=== PATIENT | female | born 1935 | race Caucasian/White ===

== ENCOUNTER 2017-08-20 14:11 | Inpatient (IN) | payer MEDICARE ==
[~2017-08-20] VITALS: Ht 147.3 cm; Wt 60.9 kg
[~2017-08-20 14:11] MED LIST: ALLOPURINOL100 MG PO; ASPIRIN325 MG PO; ASPIRIN81 M1 PO; ASPIRIN81 MG PO; BENTYL10 MG PO; BUTALB-ACETAMI1 EACH PO; CLONIDINE HCL0.1 MG PO; CLONIDINE HCL0.2 MG PO; DULERA 100 MCG/13 GM INH; FUROSEMIDE40 MG PO; HYDROCODON-ACE1 EAC9 PO; ISOSORBIDE MONO30 MG PO; KLOR-CON M2020 MEQ PO; KLOR-CON20 MEQ PO; LEVOTHYROXINE88 MCG PO; LEXAPRO10 MG PO; LORAZEPAM0.5 MG PO; LOSARTAN POTASS25 MG PO; MIRAPEX0.25 MG PO; NORCO 10-325 T1 EACH PO; OXYBUTYNIN CHLOR5 MG PO; PANTOPRAZOLE SO20 MG PO; PANTOPRAZOLE SO40 MG PO; PRAVASTATIN SOD40 MG PO; PREDNISONE5 MG PO; SUCRALFATE1 GM PO; TOPROL XL50 MG PO; TRAZODONE HCL50 MG PO; VITAMIN D31000 UNI1 PO; Z LEVOTHROID PO; Z.0.ALLOPURINOL100 M PO; Z.0.BENAZEPRIL HCL20; Z.0.CATAPRES0.2 MG PO; Z.0.GLYBURIDE MICRON; Z.0.ISOSORBIDE DINI3 PO; Z.0.LASIX40 MG PO; Z.0.LASIX80 MG; Z.0.OMEPRAZOLE40 MG; Z.0.OXYBUTYNIN CHLOR PO; Z.0.PREDNISONE5 MG PO; Z.0.TOPROL XL100 MG PO; [UNRECOGNIZED DRUG - CODE] TP; [UNRECOGNIZED DRUG - OTHER] PO
--- NOTE | 2017-08-20 16:52 | Diagnostic Imaging Report ---
PROCEDURE: A single AP view of the chest performed at 1630 hrs. COMPARISON: Chest x-ray 07/15/17 INDICATIONS: SEPSIS, AMS FINDINGS: Lines/tubes: None. Heart and mediastinum: Stable cardiomegaly. Aorta is ectatic with atherosclerotic calcifications. Lungs: The lungs are well inflated and clear. There is no evidence of mass or infiltrate. Pulmonary vascular markings are normal. Pleura: There is no pleural effusion or pneumothorax. Bones: No focal osseous lesions. IMPRESSION: Stable cardiomegaly. No vascular congestion. No acute pulmonary process. Dictated by: Dannielle Scott M.D. on 08/20/2017 at 17:00 Electronically approved by: Dannielle Scott M.D. on 08/20/2017 at 17:00
[2017-08-20 17:23] LABS: BASOPHILS # (AUTO) 0.1 (0.0-0.1); BASOPHILS % 0.5 % (0.0-1.0); EOSINOPHILS # (AUTO) 0.1 (0.0-0.4); EOSINOPHILS % 0.9 % (0.0-6.0); HEMATOCRIT 31.7 % (34.2-44.1); HEMOGLOBIN 10.3 g/dL (12.0-16.0); LYMPHOCYTES # (AUTO) 2.1 (1.0-3.2); LYMPHOCYTES % 18.9 % (18.0-39.1); MEAN CORPUSCULAR HEMOGLOBIN 29.2 pg (28-32); MEAN CORPUSCULAR HGB CONC 32.5 g/dL (31-35); MEAN CORPUSCULAR VOLUME 89.8 fL (81-99); MONOCYTES # (AUTO) 0.5 (0.2-0.8); NEUTROPHILS # (AUTO) 7.9 (2.1-6.9); NEUTROPHILS % 72.9 % (38.7-80.0); PLATELET COUNT 247 x10e3/uL (140-360); RED BLOOD COUNT 3.53 x10e6/uL (3.6-5.1); RED CELL DISTRIBUTION WIDTH 18.5 % (11.7-14.4)
--- NOTE | 2017-08-20 17:33 | Diagnostic Imaging Report ---
EXAMINATION: Head CT HISTORY: Headache. COMPARISON: None. TECHNIQUE: Multidetector axial images were obtained without contrast from the foramen magnum to the vertex . The images were reconstructed using brain and bone algorithms. Thin section brain images were reformatted into coronal and sagittal planes. Image quality: Motion/streaking artifact limits the evaluation of the skull base and posterior cranial fossa. FINDINGS: Parenchyma: 1. Moderate confluent white matter hypodensities consistent with chronic microvascular ischemic changes. 2. No mass or hemorrhage. No CT evidence of acute territorial vascular insult. Extra-axial spaces:No abnormal density. No extra-axial fluid collections Brain volume: Normal for age. Ventricles: No hydrocephalus or displacement. Arteries: No density suggestive of thrombus. Dural sinuses: No abnormal density. Extra-axial spaces: No abnormal density. Foramen magnum: No mass, Chiari malformation, or basilar invagination. Sella: No obvious mass. Paranasal/mastoid sinuses: Mild mucosal inflammatory changes in the left maxillary sinus. Skull/Scalp: No lytic or blastic lesions. No fractures. IMPRESSION: No acute intracranial abnormalities. Moderate chronic microvascular changes. Signed by: Dr. Dulce Fuentes M.D. on 08/20/2017 5:29 PM
[2017-08-20 17:52] LABS: BILIRUBIN,URINE NEGATIVE (NEGATIVE); CLARITY,URINE SL CLOUDY (CLEAR); COLOR,URINE YELLOW (YELLOW); KETONES,URINE NEGATIVE (NEGATIVE); LEUKOCYTE ESTERASE ,URINE 1+ (NEGATIVE); NITRITE,URINE NEGATIVE (NEGATIVE); PROTEIN,URINE DIPSTICK TRACE (NEGATIVE); URINE UROBILINOGEN 0.2 mg/dL (0.2 - 1)
[2017-08-20 17:54] LABS: BACTERIA,URINE FEW /HPF; EPITHELIAL CELLS,URINE FEW /LPF
[2017-08-20 17:58] LABS: ALBUMIN 2.7 g/dL (3.5-5.0); ALBUMIN/GLOBULIN RATIO 0.8 (0.8-2.0); CALCIUM 9.1 mg/dL (8.4-10.2); CREATININE, SERUM 2.04 mg/dL (0.57-1.11)
[2017-08-20] MEDS ORDERED: SODIUM CHLORIDE 0.9% 500ML 500 ML IV ONE (18:00)
[2017-08-20 18:07] LABS: CREATINE KINASE MB 1.5 ng/mL (0.00-5.00); TROPONIN I 0.027 ng/mL (0-0.300)
[2017-08-20] MEDS ORDERED: WATER STERILE 10 ML VIAL INJ PRN (19:15)
[2017-08-20] MEDS: SODIUM CHLORIDE 0.9% 1000ML 1,000 ML IV SCH (19:30)
[2017-08-20] MEDS ORDERED: DILTIAZEM 24HR180 M1 PO (21:01)
[2017-08-20] MEDS ORDERED: NYSTATIN15 GM TOP (21:01)
[2017-08-20] MEDS ORDERED: ACETAMINOPHEN325 M1 PO (21:01)
[2017-08-20] MEDS ORDERED: FLUCONAZOLE100 MG PO (21:01)
[2017-08-20] MEDS ORDERED: SIMETHICONE80 MG PO (21:01)
[2017-08-20] MEDS ORDERED: HYDRALAZINE HCL25 MG PO (21:01)
[2017-08-20] MEDS ORDERED: TERAZOSIN HCL1 MG PO (21:01)
[2017-08-20] MEDS ORDERED: ZYVOX600 MG PO (21:01)
[2017-08-20] MEDS ORDERED: CLONIDINE HCL0.2 MG PO (21:01)
[2017-08-20] MEDS: MEROPENEM 1GRAM 1 GM in WATER STERILE 10ML VIAL 20 ML IV SCH (21:30)
[2017-08-20 22:58] VITALS: BP 140/78
[2017-08-20] MEDS ORDERED: LORAZEPAM 0.5 MG TAB PO PRN (23:30)
[2017-08-21] VITALS: BP 165/91
[2017-08-21] MEDS: ACETAMINOPHEN 325 MG TAB PO PRN (00:49)
[2017-08-21] MEDS: SIMETHICONE 80 MG CHEW PO SCH ×4 (00:59→17:38)
[2017-08-21] MEDS: SODIUM CHLORIDE 0.9% 1000ML 1,000 ML IV SCH ×2 (03:38→15:57)
[2017-08-21 04:00] VITALS: BP 150/72
[2017-08-21] MEDS: LEVOTHYROXINE SODIUM 88 MCG TAB PO SCH (05:17)
[2017-08-21] MEDS: MEROPENEM 1GRAM 1 GM in WATER STERILE 10ML VIAL 20 ML IV SCH ×3 (05:28→21:59)
[2017-08-21] MEDS ORDERED: MEROPENEM 1 GM VIAL ONE ×3 (05:31→21:53)
[2017-08-21 08:00] VITALS: BP 149/67
[2017-08-21] MEDS: SUCRALFATE 1 GM TAB PO SCH ×4 (08:30→21:55)
[2017-08-21] MEDS ORDERED: FUROSEMIDE 40 MG TAB PO SCH (09:00)
[2017-08-21] MEDS ORDERED: POTASSIUM CHLORIDE 20 MEQ TAB CR PO SCH (09:00)
[2017-08-21] MEDS: TERAZOSIN HCL 1 MG CAP PO SCH ×2 (09:57→17:38)
[2017-08-21] MEDS: ISOSORBIDE MONONITRATE 30 MG TAB CR PO SCH (09:57)
[2017-08-21] MEDS: CLONIDINE HCL 0.2 MG TAB PO SCH ×3 (09:57→21:00)
[2017-08-21] MEDS: DICYCLOMINE HCL 10 MG CAP PO SCH ×3 (09:57→21:55)
[2017-08-21] MEDS: OXYBUTYNIN CHLORIDE 5 MG TAB PO SCH (09:57)
[2017-08-21] MEDS: DILTIAZEM HCL 180 MG CAP CD PO SCH (09:57)
[2017-08-21] MEDS: ASPIRIN 81 MG CHEW TAB PO SCH (09:57)
[2017-08-21] MEDS: LOSARTAN POTASSIUM 25 MG TAB PO SCH (09:57)
[2017-08-21] MEDS: PRAMIPEXOLE DIHYDROCHLORIDE 0.25 MG TAB PO SCH (09:57)
[2017-08-21] MEDS: PREDNISONE 5 MG TAB PO SCH (09:57)
[2017-08-21] MEDS: HYDRALAZINE HCL 25 MG TAB PO SCH ×5 (09:57→21:54)
[2017-08-21] MEDS: ALLOPURINOL 100 MG TAB PO SCH (09:58)
[2017-08-21] MEDS: NYSTATIN 100,000 UNITS/GM CRM 30GM TUBE TOP SCH ×2 (09:58→17:38)
[2017-08-21] MEDS: ESCITALOPRAM OXALATE 10 MG TAB PO SCH (09:58)
[2017-08-21] MEDS: METOPROLOL SUCCINATE 50 MG TAB XL PO SCH (09:58)
[2017-08-21 12:00] VITALS: BP 137/60
[2017-08-21] MEDS: TRAMADOL/APAP 37.5MG-325MG TAB PO PRN (15:53)
[2017-08-21 16:00] VITALS: BP 118/68
[2017-08-21 20:00] VITALS: BP 113/57
--- NOTE | 2017-08-21 20:06 | History and Physical ---
HISTORY OF PRESENT ILLNESS: An 82-year-old female with past medical history positive for hypertension, diabetes and dementia. Came from [facility] because of confusion. She was found to have UTI and dehydration. Started on IV fluids and IV antibiotics. REVIEW OF SYSTEMS: The patient is confused and cannot give any information. PAST MEDICAL HISTORY: Hypertension, diabetes, recurrent UTI, and dementia. PHYSICAL EXAMINATION: VITAL SIGNS: Blood pressure 137/60, temperature 98.5, heart rate 71 per minute, respiratory rate 20 per minute, oxygen saturation 97%. LABORATORY DATA: Blood work with BNP 135, potassium 4.0, chloride 99. CO2 25. BUN 30, creatinine 2.04. Glucose 139 and the CBC with white blood count 10.8. Hemoglobin 10.3, hematocrit 31.7 Platelet count 147,000. AST 16, ALT 15. Total bilirubin 0.3. Alkaline phosphatase 81. Chest x-ray negative. EKG is unremarkable. FINAL IMPRESSION: 1. Urinary tract infection. 2. Increased confusion most likely secondary to a combination of urinary tract infection and dehydration. 3. Hypertension. 4. 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 5. Acute renal failure stage 3. 6. Anemia. 7. Most likely dementia. PLAN OF TREATMENT: Continue meropenem 250 mg IV piggyback daily. Continue IV fluids at 100 mL an hour. Continue Tylenol 350 mg q.6 h. as needed. Bentyl 10 mg 3 times a day. Hydralazine 100 mg q.6 hours. Losartan 25 mg daily. Potassium chloride 20 mEq daily. Carafate 1 gram before meals and at bedtime. Allopurinol 200 mg daily. Cardizem 180 mg daily. Isosorbide mononitrate 30 mg daily. Metoprolol 100 mg daily. Pramipexole 0.5 mg at bedtime. Terazosin 1 mg twice a day. Aspirin 81 mg daily. Citalopram 20 mg daily. Levothyroxine 88 mcg daily. Nystatin twice a day. Prednisone 5 mg daily. Trazodone 150 mg at bedtime. Clonidine 0.2 mg 3 times a day. Furosemide 40 mg daily. Ativan 0.5 mg as needed for anxiety. Oxybutynin 5 mg daily. Simethicone 18 mg q.6 hours. Going to also put a hold on the potassium and Lasix because of the worsening renal insufficiency. Continue IV fluids. We are going to recheck BNP tomorrow. We are also get a urology consult with Dr. Nava for recurrent UTI's. Job#: [id number] PONCHO
[2017-08-21] MEDS: TRAZODONE HCL 50 MG TAB PO SCH (21:56)
[2017-08-22] VITALS (7 sets, daily range): BP systolic 105–157; BP diastolic 51–77
[2017-08-22] MEDS: SIMETHICONE 80 MG CHEW PO SCH ×5 (00:11→23:22)
[2017-08-22] MEDS ORDERED: MEROPENEM 1 GM VIAL ONE ×2 (06:12→11:48)
[2017-08-22] MEDS: MEROPENEM 1GRAM 1 GM in WATER STERILE 10ML VIAL 20 ML IV SCH (06:14)
[2017-08-22] MEDS: LEVOTHYROXINE SODIUM 88 MCG TAB PO SCH (06:14)
[2017-08-22] MEDS: ACETAMINOPHEN 325 MG TAB PO PRN (06:15)
[2017-08-22] MEDS: SUCRALFATE 1 GM TAB PO SCH ×4 (07:30→21:16)
[2017-08-22 08:55] LABS: ANION GAP 14.5 mmol/L (8-16); CALCIUM 9.1 mg/dL (8.4-10.2); CREATININE, SERUM 1.49 mg/dL (0.57-1.11); POTASSIUM 3.5 mmol/L (3.5-5.1)
[2017-08-22] MEDS: ASPIRIN 81 MG CHEW TAB PO SCH (09:27)
[2017-08-22] MEDS: DICYCLOMINE HCL 10 MG CAP PO SCH ×3 (09:27→21:16)
[2017-08-22] MEDS: HYDRALAZINE HCL 25 MG TAB PO SCH ×4 (09:27→21:16)
[2017-08-22] MEDS: PREDNISONE 5 MG TAB PO SCH (09:28)
[2017-08-22] MEDS: PRAMIPEXOLE DIHYDROCHLORIDE 0.25 MG TAB PO SCH (09:28)
[2017-08-22] MEDS: NYSTATIN 100,000 UNITS/GM CRM 30GM TUBE TOP SCH ×2 (09:28→17:07)
[2017-08-22] MEDS: ESCITALOPRAM OXALATE 10 MG TAB PO SCH (09:28)
[2017-08-22] MEDS: TERAZOSIN HCL 1 MG CAP PO SCH ×2 (09:28→17:00)
[2017-08-22] MEDS: DILTIAZEM HCL 180 MG CAP CD PO SCH (09:28)
[2017-08-22] MEDS: METOPROLOL SUCCINATE 50 MG TAB XL PO SCH (09:28)
[2017-08-22] MEDS: ALLOPURINOL 100 MG TAB PO SCH (09:28)
[2017-08-22] MEDS: LOSARTAN POTASSIUM 25 MG TAB PO SCH (09:28)
[2017-08-22] MEDS: CLONIDINE HCL 0.2 MG TAB PO SCH ×3 (09:28→21:16)
[2017-08-22] MEDS: ISOSORBIDE MONONITRATE 30 MG TAB CR PO SCH (09:28)
[2017-08-22] MEDS: OXYBUTYNIN CHLORIDE 5 MG TAB PO SCH (09:28)
[2017-08-22] MEDS: MEROPENEM 1 GM VIAL IV SCH ×2 (14:23→21:16)
[2017-08-22] MEDS: TRAZODONE HCL 50 MG TAB PO SCH (21:16)
[2017-08-22] MEDS: SODIUM CHLORIDE 0.9% 1000ML 1,000 ML IV SCH (21:16)
[2017-08-23] VITALS (7 sets, daily range): BP systolic 127–156; BP diastolic 57–89
[2017-08-23] MEDS: MEROPENEM 1 GM VIAL IV SCH ×3 (05:20→21:13)
[2017-08-23] MEDS: SIMETHICONE 80 MG CHEW PO SCH ×3 (05:20→18:04)
[2017-08-23] MEDS: LEVOTHYROXINE SODIUM 88 MCG TAB PO SCH (05:20)
[2017-08-23] MEDS: SODIUM CHLORIDE 0.9% 1000ML 1,000 ML IV SCH ×2 (05:20→16:35)
[2017-08-23] MEDS: ACETAMINOPHEN 325 MG TAB PO PRN (05:30)
[2017-08-23] MEDS: SUCRALFATE 1 GM TAB PO SCH ×4 (07:54→21:12)
[2017-08-23] MEDS: DILTIAZEM HCL 180 MG CAP CD PO SCH (09:46)
[2017-08-23] MEDS: LOSARTAN POTASSIUM 25 MG TAB PO SCH (09:46)
[2017-08-23] MEDS: HYDRALAZINE HCL 25 MG TAB PO SCH ×4 (09:46→21:12)
[2017-08-23] MEDS: DICYCLOMINE HCL 10 MG CAP PO SCH ×3 (09:46→21:12)
[2017-08-23] MEDS: CLONIDINE HCL 0.2 MG TAB PO SCH ×3 (09:46→21:12)
[2017-08-23] MEDS: OXYBUTYNIN CHLORIDE 5 MG TAB PO SCH (09:46)
[2017-08-23] MEDS: ASPIRIN 81 MG CHEW TAB PO SCH (09:46)
[2017-08-23] MEDS: ALLOPURINOL 100 MG TAB PO SCH (09:47)
[2017-08-23] MEDS: METOPROLOL SUCCINATE 50 MG TAB XL PO SCH (09:47)
[2017-08-23] MEDS: PREDNISONE 5 MG TAB PO SCH (09:47)
[2017-08-23] MEDS: ESCITALOPRAM OXALATE 10 MG TAB PO SCH (09:47)
[2017-08-23] MEDS: ISOSORBIDE MONONITRATE 30 MG TAB CR PO SCH (09:47)
[2017-08-23] MEDS: TERAZOSIN HCL 1 MG CAP PO SCH ×2 (09:47→17:47)
[2017-08-23] MEDS: NYSTATIN 100,000 UNITS/GM CRM 30GM TUBE TOP SCH ×2 (09:47→17:47)
[2017-08-23] MEDS: PRAMIPEXOLE DIHYDROCHLORIDE 0.25 MG TAB PO SCH (09:47)
[2017-08-23] MEDS: TRAZODONE HCL 50 MG TAB PO SCH (21:12)
[2017-08-24] VITALS (7 sets, daily range): BP systolic 118–184; BP diastolic 56–66
[2017-08-24] MEDS: SIMETHICONE 80 MG CHEW PO SCH ×4 (00:42→19:06)
[2017-08-24] MEDS: SODIUM CHLORIDE 0.9% 1000ML 1,000 ML IV SCH ×2 (03:37→14:00)
[2017-08-24] MEDS: LEVOTHYROXINE SODIUM 88 MCG TAB PO SCH (06:24)
[2017-08-24] MEDS: MEROPENEM 1 GM VIAL IV SCH ×3 (06:55→21:01)
[2017-08-24] MEDS: SUCRALFATE 1 GM TAB PO SCH ×4 (07:36→20:58)
[2017-08-24] MEDS: ASPIRIN 81 MG CHEW TAB PO SCH (09:37)
[2017-08-24] MEDS: DICYCLOMINE HCL 10 MG CAP PO SCH ×3 (09:37→20:58)
[2017-08-24] MEDS: DILTIAZEM HCL 180 MG CAP CD PO SCH (09:37)
[2017-08-24] MEDS: CLONIDINE HCL 0.2 MG TAB PO SCH ×3 (09:37→20:59)
[2017-08-24] MEDS: HYDRALAZINE HCL 25 MG TAB PO SCH ×4 (09:37→20:58)
[2017-08-24] MEDS: ALLOPURINOL 100 MG TAB PO SCH (09:38)
[2017-08-24] MEDS: ESCITALOPRAM OXALATE 10 MG TAB PO SCH (09:38)
[2017-08-24] MEDS: TERAZOSIN HCL 1 MG CAP PO SCH ×2 (09:38→17:23)
[2017-08-24] MEDS: ISOSORBIDE MONONITRATE 30 MG TAB CR PO SCH (09:38)
[2017-08-24] MEDS: LOSARTAN POTASSIUM 25 MG TAB PO SCH (09:38)
[2017-08-24] MEDS: PRAMIPEXOLE DIHYDROCHLORIDE 0.25 MG TAB PO SCH (09:38)
[2017-08-24] MEDS: NYSTATIN 100,000 UNITS/GM CRM 30GM TUBE TOP SCH ×2 (09:38→17:22)
[2017-08-24] MEDS: METOPROLOL SUCCINATE 50 MG TAB XL PO SCH (09:38)
[2017-08-24] MEDS: OXYBUTYNIN CHLORIDE 5 MG TAB PO SCH (09:38)
[2017-08-24] MEDS: PREDNISONE 5 MG TAB PO SCH (09:38)
[2017-08-24] MEDS: TRAZODONE HCL 50 MG TAB PO SCH (20:59)
[2017-08-25] VITALS: BP_SYST 158; BP_SYST 92; BP_DIAS 66; BP_DIAS 92
[2017-08-25] MEDS: SIMETHICONE 80 MG CHEW PO SCH ×4 (00:12→17:30)
[2017-08-25] MEDS: TRAMADOL/APAP 37.5MG-325MG TAB PO PRN (00:44)
[2017-08-25] MEDS: SODIUM CHLORIDE 0.9% 1000ML 1,000 ML IV SCH ×2 (01:04→08:53)
[2017-08-25 04:00] VITALS: BP 182/76
[2017-08-25] MEDS: LEVOTHYROXINE SODIUM 88 MCG TAB PO SCH (06:17)
[2017-08-25] MEDS: MEROPENEM 1 GM VIAL IV SCH ×2 (06:17→14:05)
[2017-08-25] MEDS: SUCRALFATE 1 GM TAB PO SCH ×3 (08:00→16:30)
[2017-08-25 08:39] VITALS: BP 167/73
[2017-08-25] MEDS: METOPROLOL SUCCINATE 50 MG TAB XL PO SCH (09:10)
[2017-08-25] MEDS: ISOSORBIDE MONONITRATE 30 MG TAB CR PO SCH (09:10)
[2017-08-25] MEDS: NYSTATIN 100,000 UNITS/GM CRM 30GM TUBE TOP SCH ×2 (09:10→17:30)
[2017-08-25] MEDS: DICYCLOMINE HCL 10 MG CAP PO SCH ×2 (09:10→16:30)
[2017-08-25] MEDS: HYDRALAZINE HCL 25 MG TAB PO SCH ×3 (09:10→18:00)
[2017-08-25] MEDS: LOSARTAN POTASSIUM 25 MG TAB PO SCH (09:10)
[2017-08-25] MEDS: ASPIRIN 81 MG CHEW TAB PO SCH (09:10)
[2017-08-25] MEDS: PRAMIPEXOLE DIHYDROCHLORIDE 0.25 MG TAB PO SCH (09:10)
[2017-08-25] MEDS: ALLOPURINOL 100 MG TAB PO SCH (09:10)
[2017-08-25] MEDS: TERAZOSIN HCL 1 MG CAP PO SCH ×2 (09:10→17:30)
[2017-08-25] MEDS: DILTIAZEM HCL 180 MG CAP CD PO SCH (09:10)
[2017-08-25] MEDS: CLONIDINE HCL 0.2 MG TAB PO SCH ×2 (09:10→16:30)
[2017-08-25] MEDS: OXYBUTYNIN CHLORIDE 5 MG TAB PO SCH (09:10)
[2017-08-25] MEDS: PREDNISONE 5 MG TAB PO SCH (09:10)
[2017-08-25] MEDS: ESCITALOPRAM OXALATE 10 MG TAB PO SCH (09:10)
[2017-08-25 12:49] VITALS: BP 147/72
[2017-08-25 16:34] VITALS: BP 138/74
== END 2017-08-25 18:40 | DRG 871 ==
LOC: ER 14:11 → ERHOLD 19:08 → EDBEDREQTM 21:16 → MED/SURG3 22:19
DX: A41.9 Sepsis, unspecified organism (principal); G93.41 Metabolic encephalopathy; N17.9 Acute kidney failure, unspecified; N39.0 Urinary tract infection, site not specified; N18.3 Chronic kidney disease, stage 3 (moderate); E11.21 Type 2 diabetes mellitus with diabetic nephropathy; E86.0 Dehydration; F03.90 Unspecified dementia, unspecified severity, without behavioral disturbance, psychotic disturbance, mood disturbance, and anxiety; I12.9 Hypertensive chronic kidney disease with stage 1 through stage 4 chronic kidney disease, or unspecified chronic kidney disease; E11.22 Type 2 diabetes mellitus with diabetic chronic kidney disease; Z79.4 Long term (current) use of insulin
CPT/HCPCS: 36415; 70450; 71045; 80048; 80053; 81001; 82550; 82553; 82948; 84484; 85025; 87040; 87086; 93005; 99284; J2185; J7030; J7040; J7512

== ENCOUNTER 2017-10-13 22:08 | Observation (INO) | payer MEDICARE ==
[~2017-10-13] VITALS: Ht 144.8 cm; Wt 53.7 kg
[~2017-10-13 22:08] MED LIST changes: +ACETAMINOPHEN325 M1 PO; +DILTIAZEM 24HR180 M1 PO; +FLUCONAZOLE100 MG PO; +HYDRALAZINE HCL25 MG PO; +NYSTATIN15 GM TOP; +SIMETHICONE80 MG PO; +TERAZOSIN HCL1 MG PO; +ZYVOX600 MG PO
--- OUTSIDE RECORDS SUMMARY | 2017-10-13 22:12 | XMS REPORT ---
Author Author [facility] Address Unknown Phone Unavailable Care Team Providers Care Search Engine Optimization Strategist Name Role Phone JOSEPH MILLS Unavailable Unavailable KENYETTA MORGAN Unavailable Unavailable CHOLO KENT Unavailable Unavailable THESTRUDARYN Pérez Unavailable Unavailable Problems This patient has no known problems. Allergies, Adverse Reactions, Alerts This patient has no known allergies or adverse reactions. Medications This patient has no known medications. Results Test Description Test Time Test Comments Text Results Atomic Results Result Comments CHEST SINGLE (PORTABLE) [place] [address] Patient Name: DEE ANTUNEZ MR #: [id number] : 1935 Age/Sex: 81/F Req #: [id number] Adm Physician: Ordered by: MONTY MAHER MOLD FINISHER Report #: [id number] Location: ER Room/Bed: ___ Procedure: [id number] DX/CHEST SINGLE (PORTABLE) Exam Date: 08/20/17 Exam Time: 1610 REPORT STATUS: Signed PROCEDURE : A single AP view of the chest performed at 1630 hrs. COMPARISON: Chest x-ray 07/15/17 INDICATIONS: SEPSIS, AMS FINDINGS: Lines/tubes: None. Heart and mediastinum: Stable cardiomegaly. Aorta is ectatic with atherosclerotic calcifications. Lungs: The lungs are well inflated and clear. There is no evidence of mass or infiltrate. Pulmonary vascular markings are normal. Pleura: There is no pleural effusion or pneumothorax. Bones: No focal osseous lesions. IMPRESSION: Stable cardiomegaly. No vascular congestion. No acute pulmonary process. Dictated by: Dannielle Seo M.D. on 08/20/2017 at 17:00 Electronically approved by: Dannielle Seo M.D. on 08/20/2017 at 17:00 Dictated By: DANNIELLE SEO MD 170 Transcribed By: TUSHAR on 08/20 1700 COPY TO: MONTY MAHER MOLD FINISHER CT BRAIN WO [place] [address] Patient Name: DEE ANTUNEZ MR #: [id number] : 1935 Age/Sex: 81/F Req #: [id number] Adm Physician: Ordered by: MONTY MAHER MOLD FINISHER Report #: [id number] Location: ER Room/Bed: Procedure: [id number] CT/CT BRAIN WO Exam Date: 08/20/17 Exam Time: 1610 REPORT STATUS: Signed EXAMINATION: Head CT HISTORY: Headache. COMPARISON: None. TECHNIQUE: Multidetector axial images were obtained without contrast from the foramen magnum to the vertex . The images were reconstructed using brain and bone algorithms. Thin section brain images were reformatted into coronal and sagittal planes. Image quality: Motion/streaking artifact limits the evaluation of the skull base and posterior cranial fossa. FINDINGS: Parenchyma: 1. Moderate confluent white matter hypodensities consistent with chronic microvascular ischemic changes. 2. No mass or hemorrhage. No CT evidence of acute territorial vascular insult. Extra-axial spaces:No abnormal density. No extra-axial fluid collections Brain volume: Normal for age. Ventricles: No hydrocephalus or displacement. Arteries: No density suggestive of thrombus. Dural sinuses: No abnormal density. Extra-axial spaces: No abnormal density. Foramen magnum: No mass, Chiari malformation, or basilar invagination. Sella: No obvious mass. Paranasal/mastoid sinuses: Mild mucosal inflammatory changes in the left maxillary sinus. Skull/Scalp: No lytic or blastic lesions. No fractures. IMPRESSION: No acute intracranial abnormalities. Moderate chronic microvascular changes. Signed by: Dr. Dulce Fuentes M.D. on 08/20/2017 5:29 PM Dictated By: DULCE FUENTES MD 28 Transcribed By: BENNY on 08/20/171728 COPY TO: MONTY MAHER NP ABDOMEN-1VIEW (RUST) [place] [address] Patient Name: DEE ANTUNEZ MR #: [id number] : 1935 Age/Sex: 81/F Req #: [id number] Adm Physician: KENYETTA MORGAN MD Ordered by: SABINO MORGAN MD Report #: [id number] Location: ICU Room/Bed: [place] [address] Procedure: [id number] DX/ABDOMEN-1VIEW (RUST) Exam Date: Exam Time: REPORT STATUS: Signed EXAM: ABDOMEN-1VIEW (RUST) DATE: 07/17/2017 2:43 AM Time stamp on exam: 3:36 AM INDICATION: Distended abdomen COMPARISON: CT of the abdomen and pelvis without contrast on 07/15/2017 FINDINGS: LINES/TUBES: None BOWEL PATTERN: No evidence for obstruction. SOFT TISSUES: No abnormal calcifications. No mass effect. LUNG BASES: Not included BONES: Degenerative changes of the lumbar spine. Surgical clips in the right upper quadrant compatible with cholecystectomy. IMPRESSION: Nonobstructive bowel gas pattern. Signed by: Dr. Erasto Espinoza M.D. on 07/17/2017 4:38 AM Dictated By: ERASTO LANE MD 7 Transcribed By: BENNY on 07/17/17437 COPY TO: SABINO MORGAN MD US RENAL RETROPERITONEAL COMP [place] [address] Patient Name: DEE ANTUNEZ MR #: [id number] : 1935 Age/Sex: 81/F Req #: [id number] Adm Physician: KENYETTA MORGAN MD Ordered by : GILSON BABIN MD Report #: [id number] Location: ICU Room/Bed: ICU [facility] Procedure: [id number] US/US RENAL RETROPERITONEAL COMP Exam Date: Exam Time: REPORT STATUS: Signed PROCEDURE: US RETROPERITONEAL ( KIDNEY ). COMPARISON: None. INDICATIONS: JAYDEN TECHNIQUE: Jeter scale and color Doppler ultrasound kidneys FINDINGS: Right kidney: 10.6 x 4.7 x 5.2 cm. Cortical thickness 1.6 cm. Left kidney: 8.5 x 4.9 x 3.5 cm. Cortical thickness 1.5 cm. Both kidneys demonstrate mildly increased cortical echogenicity. No conspicuous cyst, stone or mass. Urinary bladder decompressed by Jackson catheter. CONCLUSION: Mildly increased renal parenchymal echogenicity keeping with a combination of acute and chronic renal insufficiency. No obstruction. Dictated by: Eneida Crews M.D. on 07/16/2017 at 14:16 Electronically approved by: Eneida Crews M.D. on 07/16/2017 at 14:16 Dictated By: ENEIDA CREWS MD 15 Transcribed By: TUSHAR on 07/16/171415 COPY TO: GILSON BABIN MD CT ABDOMEN/PELVIS WO [place] [address] Patient Name: DEE ANTUNEZ MR #: [id number] : 1935 Age/Sex: 81/F Req #: [id number] Adm Physician: KENYETTA MORGAN MD Ordered by: MARCE PIERRE MD Report #: [id number] Location: ICU Room/Bed: [place] [address] ____ Procedure: [id number] CT/CT ABDOMEN/PELVIS WO Exam Date: Exam Time: 2034 REPORT STATUS: Signed EXAM: CT Abdomen and Pelvis WITHOUT contrast INDICATION: Acute renal failure , sepsis, hematuria COMPARISON: 04/17/2016 TECHNIQUE: Abdomen and pelvis were scanned utilizing a multidetector helical scanner from the lung base to the pubic symphysis without administration of IV contrast. Absence of intravenous contrast decreases sensitivity for detection of focal lesions and vascular pathology. Coronal and sagittal reformations were obtained. Routine protocol was performed. IV CONTRAST: None. ORAL CONTRAST: Water RADIATION DOSE: Total DLP: ... mGy*cm Estimated effective dose: (DLP x 0.015 x size factor) mSv COMPLICATIONS: None FINDINGS: LINES and TUBES: None. LOWER THORAX : Evidence of mild interlobular septi thickening in the lung bases compatible with edema/fluid overload. Small bilateral pleural effusions present HEPATOBILIARY: No focal hepatic lesions. No biliary ductal dilation. GALLBLADDER: There are cholecystectomy clips. SPLEEN: No splenomegaly. PANCREAS: No focal masses or ductal dilatation. ADRENALS: No adrenal nodules KIDNEYS/URETERS: No hydronephrosis. No cystic or solid mass lesions. No stones. Moderate cortical atrophy in keeping with chronic medical renal disease GI TRACT: No abnormal distention , wall thickening, or evidence of bowel obstruction. Rectal tube is in place. Appendix is not clearly identified. There is however no fat stranding or adenopathy in the right lower quadrant to suggest appendicitis. PELVIC ORGANS/BLADDER: Jackson catheter decompresses the urinary bladder. LYMPH NODES: No lymphadenopathy. VESSELS: There is severe atherosclerotic disease in the aorta and major arterial branches. PERITONEUM / RETROPERITONEUM: No free air or fluid. BONES: There are degenerative changes in the lumbar spine. SOFT TISSUES: Unremarkable. IMPRESSION: 1. Mild fluid overload in the lung bases with associated pleural effusion. 2. Extensive atherosclerotic calcification of the thoracoabdominal aorta and branches. 3. Atrophic renal cortices in keeping with chronic medical renal disease. Signed by: Dr. Erasto Espinoza M.D. on 10:13 PM Dictated By: ERASTO LANE MD 12 Transcribed By: BENNY on 07/15/172212 COPY TO: MARCE PIERRE MD CHEST XRAY LINE PLACEMENT [place] [address] Patient Name: DEE ANTUNEZ MR #: [id number] : 1935 Age/Sex: 81/F Req #: [id number] Adm Physician: KENYETTA MORGAN MD Ordered by : SYLVIE SINGH MD Report #: [id number] Location: [facility] Room/Bed: [facility]- Procedure: DX/CHEST XRAY LINE PLACEMENT Exam Date: 07/15/17 Exam Time: 1105 REPORT STATUS: Signed PROCEDURE: A single AP view of the chest. COMPARISON: [facility], DX, CHEST SINGLE (PORTABLE), 07/15/2017, 8:16. INDICATIONS: CENTRAL LINE PLACMENT FINDINGS: See impression. IMPRESSION: 1. interval placement of right-sided central line, with distal tip projecting in the region of the cavoatrial junction. No pneumothorax. 2. Otherwise, no interval change. Malick Pearl M.D. Dictated by: Malick Pearl M.D. on 07/15/2017 at 12:28 Electronically approved by: Malick Pearl M.D. on 07/15/2017 at 12:28 Dictated By: MALICK PEARL MD 1228 Transcribed By: TUSHAR on 07/15/17 1228 COPY TO: SYLVIE SINGH MD CHEST SINGLE (PORTABLE) [place] [address] Patient Name: DEE ANTUNEZ MR #: [id number] : 1935 Age/Sex: 81/F Req #: [id number] Adm Physician: KENYETTA MORGAN MD Ordered by : SYLVIE SINGH MD Report #: [id number] Location: [facility] Room/Bed: [place] [address] Procedure: DX/CHEST SINGLE (PORTABLE) Exam Date: 07/15/17 Exam Time: 0810 REPORT STATUS: Signed PROCEDURE: A single AP view of the chest. COMPARISON: None. INDICATIONS: GI INFECTION, WEAKNESS FINDINGS: Lines/tubes: None. Lungs: The lungs are well inflated and clear. There is no evidence of pneumonia or pulmonary edema. Pleura: There is no pleural effusion or pneumothorax. Heart and mediastinum: The heart and the mediastinum are unremarkable. Atherosclerotic calcifications. Bones: No acute bony abnormality. Degenerative changes of the thoracic spine. IMPRESSION: No acute radiographic abnormality. Dictated by: Radha Reyes M.D. on 07/15/2017 at 8:52 Electronically approved by: Radha Reyes M.D. on 07/15/2017 at 8:52 Dictated By: RADHA REYES MD 1 Transcribed By: TUSHAR on 07/15/17851 COPY TO: SYLVIE SINGH MD US GUIDANCE FOR VASCULAR ACCES [place] [address] Patient Name: DEE ANTUNEZ MR #: [id number] : 1935 Age/Sex: 81/F Req #: [id number] Adm Physician: KENYETTA MORGAN MD Ordered by : KENYETTA MORGAN MD Report #: [id number] Location: [facility] Room/Bed: [place] [address] Procedure: [id number] US/US GUIDANCE FOR VASCULAR ACCES Exam Date: 07/15/17 Exam Time: 1041 REPORT STATUS: Signed PROCEDURE: ULTRASOUND GUIDANCE FOR VASCULAR ACCESS COMPARISON: None. INDICATIONS: Central Line Placement FINDINGS: Focused sonographic evaluation of the right neck was performed which demonstrated a patent compressible right internal jugular vein. The procedure was performed at the bedside in the emergency room. The right neck was prepped and draped in the usual sterile fashion. 1% lidocaine was infused into the subcutaneous tissues for local anesthesia. Utilizing direct sonographic guidance, a 21 gauge needle was advanced into the right internal jugular vein. A 0.018 inch wire was advanced centrally. An access sheath was placed over the wire to secure the vascular access. The wire was upsized to a 0.035 inch wire. A single dilation was performed over the wire. A double- lumen temporary central venous catheter was advanced over the wire. The wire was removed. The catheter ports demonstrated proper function with aspiration and flushing of saline. The catheter ports were flushed with sterile saline. The catheter was secured to the skin with 3-0 Ethilon sutures. A sterile dressing was applied. There is no immediate complications. The patient remained in the emergency room in stable unchanged condition. CONCLUSION: Successful placement of a right internal jugular temporary central venous catheter utilizing ultrasound guidance. Dictated by: Radha Reyes M.D. on 07/15/2017 at 14:26 Electronically approved by: Radha Reyes M.D. on 07/15/2017 at 14:26 Dictated By: RADHA REYES MD 25 Transcribed By: TUSHAR on 07/15/171425 COPY TO: KENYETTA MORGAN MD [facility]NE[facility]ED [facility] [place] [address] Patient Name: DEE ANTUNEZ MR #: [id number] : 1935 Age/Sex: 81/F Req #: [id number] Adm Physician: KENYETTA MORGAN MD Ordered by : KENYETTA MORGAN MD Report #: [id number] Location: [facility] Room/Bed: [place] [address] Procedure: [id number] IR/NON-TUNNELLED CVC CATH PLACMNT Exam Date: 07/15/17 Exam Time: 1041 REPORT STATUS: Signed PROCEDURE: NON-TUNNELLED CVC CATH PLACMNT COMPARISON: None. INDICATIONS: Central Line Placement PROCEDURE : See below. CONCLUSION: Please see the dictation of the ultrasound guidance for full clinical details. Dictated by: Radha eRyes M.D. on 07/15/2017 at 15:33 Electronically approved by: Radha Reyes M.D. on 07/15/2017 at 15:33 Dictated By: RADHA REYES MD 32 Transcribed By: TUSHAR on 07/15/171532 COPY TO: KENYETTA MORGAN MD WRIST COMPLETE LEFT [place] [address] Patient Name: DEE ANTUNEZ MR #: [id number] : 1935 Age/Sex: 81/F Req #: [id number] Adm Physician: Ordered by: CHOLO KENT MD Report #: [id number] Location: ER Room/Bed: Procedure: [id number] DX/WRIST COMPLETE LEFT Exam Date: 07/10/17 Exam Time: 1202 REPORT STATUS: Signed Exam: Left wrist 3 views History: Pain Comparison: None. Findings: No displaced fracture. Bony mineralization. Calcium pyrophosphate deposition. Advanced arthropathy first CMC joint. Impression: No acute osseous abnormality Signed by: Dr. Jose Manuel Pringle M.D. on 07/10/2017 12:39 PM Dictated By: JOSE MANUEL PRINGLE MD 1239 Transcribed By: BENNY on 07/10/17 1239 COPY TO: CHOLO KENT MD CHEST SINGLE (PORTABLE) [facility] [address] [place] [address] Patient Name: DEE ANTUNEZ MR #: [id number] : 1935 Age/Sex: 81/F Req #: [id number] Adm Physician: Ordered by: CHOLO KENT MD Report #: [id number] Location: ER Room/Bed: Procedure: [id number] DX/CHEST SINGLE (PORTABLE) Exam Date: 07/10/17 Exam Time: 1145 REPORT STATUS: Signed Examination: Single AP view of the chest. COMPARISON: Examination: Single AP view of the chest. COMPARISON: None. INDICATION: Not feeling well DISCUSSION: Lines/tubes: None. Lungs: The lungs are well inflated and clear. There is no evidence of pneumonia or pulmonary edema. Pleura: There is no pleural effusion or pneumothorax. Heart and mediastinum: The heart and the mediastinum are unremarkable. Bones and soft tissues: No acute bony abnormalities. IMPRESSION: 1. No acute cardiopulmonary abnormalities. INDICATION: DISCUSSION: Lines/tubes: None. Lungs: The lungs are well inflated and clear. There is no evidence of pneumonia or pulmonary edema. Pleura: There is no pleural effusion or pneumothorax. Heart and mediastinum: The heart and the mediastinum are unremarkable. Bones and soft tissues: No acute bony abnormalities. Degenerative changes in the thoracic spine. IMPRESSION: 1. No acute cardiopulmonary abnormalities. Signed by: Dr. Jose Manuel Pringle M.D. on 07/10/2017 12:05 PM Dictated By: JOSE MANUEL PRINGLE MD 1205 Transcribed By: BENNY on 07/10/17 1205 COPY TO: CHOLO KENT MD CT BRAIN WO [facility] [address] [place] [address] Patient Name: DEE ANTUNEZ MR #: [id number] : 1935 Age/Sex: 81/F Req #: [id number] Adm Physician: KENYETTA MORGAN MD Ordered by: NEDA MUNOZ MD Report #: [id number] Location: MED/SURG2 Room/Bed: [facility] Procedure: [id number] CT/CT BRAIN WO Exam Date: Exam Time: 2300 REPORT STATUS: Signed History:Change in mental status Comparison studies:None Technique: Axial images were obtained from the skull base to the vertex. Coronal and sagittal images reconstructed from the axial data. Intravenous contrast: None Findings: Scalp/skull: No abnormalities. Extra-axial spaces: No masses. No fluid collections. Brain sulci: Mildly prominent. Ventricles: Mild compensatory dilatation. No hydrocephalus. Parenchyma: Scattered small hypodensities in the supratentorial white matter are small vessel ischemic changes. No masses, hemorrhage, acute or chronic cortical vascular insults. Sellar/suprasellar region: No abnormalities. Craniocervical junction: Patent foramen magnum. No Chiari one malformation. Incidental findings: Atherosclerotic calcifications in the carotid siphons and vertebral arteries . Air-fluid level in the right maxillary sinus. Opacification of the left maxillary sinus with periosteal thickening Impression: No acute intracranial abnormalities. Maxillary sinusitis. Chronic findings: 1. Mild generalized volume loss. 2. Mild supratentorial white matter small vessel ischemic changes. Signed by: DR Jared Stokes M.D. on 04/17/2017 11:41 PM Dictated By: JARED STOKES MD 40 Transcribed By: BENNY on 04/17/172340 COPY TO: NEDA MUNOZ MD CHEST SINGLE (PORTABLE) [place] [address] Patient Name: DEE ANTUNEZ MR #: [id number] : 1935 Age/Sex: 81/F Req #: [id number] Adm Physician: Ordered by: CHOLO KENT MD Report #: [id number] Location: ER Room/Bed: Procedure: [id number] DX/CHEST SINGLE (PORTABLE) Exam Date: 04/17/17 Exam Time: 1135 REPORT STATUS: Signed EXAMINATION: CHEST SINGLE (PORTABLE) INDICATION: COMPARISON: Chest radiograph from 04/06/2017 FINDINGS: AP view TUBES and LINES: None. LUNGS: Lungs are well inflated. Lungs are clear. There is no evidence of pneumonia or pulmonary edema. PLEURA: No pleural effusion or pneumothorax. HEART AND MEDIASTINUM: Stable mild enlargement of the cardiac silhouette. BONES AND SOFT TISSUES: No acute osseous lesion. Soft tissues are unremarkable. UPPER ABDOMEN: No free air under the diaphragm. IMPRESSION: No acute thoracic abnormality. Interval resolution of the lingular atelectasis. Signed by : Dr. Nicolle Mcgregor M.D. on 04/17/2017 12:03 PM Dictated By: NICOLLE MCGREGOR MD 02 COPY TO: CHOLO KENT MD CHEST 2 VIEWS [place] [address] Patient Name: DEE ANTUNEZ MR #: [id number] : 1935 Age/Sex: 81/F Req #: [id number] Adm Physician: Ordered by: DOLORES WELSH MOLD FINISHER Report #: [id number] Location: ER Room/Bed: Procedure: [id number] DX/CHEST 2 VIEWS Exam Date: 04/06/17 Exam Time: 1845 REPORT STATUS: Signed EXAMINATION: CHEST 2 VIEWS INDICATION: Confusion. COMPARISON: Correlation with CT chest dated 12/03/2015. FINDINGS: TUBES and LINES: None. LUNGS : Left basilar and lingular linear atelectasis. There is no evidence of pneumonia or pulmonary edema. PLEURA: No pleural effusion or pneumothorax. HEART AND MEDIASTINUM: The cardiac silhouette is mildly enlarged. Tortuous and calcified thoracic aorta. BONES AND SOFT TISSUES: Loss of height of T12 and T9 consistent with compression fractures, the former appears new since the prior CT of 2015. UPPER ABDOMEN: No free air under the diaphragm. IMPRESSION: Left basilar and lingular subsegmental atelectasis. Loss of height of T12 and T9 consistent with compression fractures, the former appears new since the prior CT of 2015. Signed by: Dr. Genesis Royal M.D. on 04/06/2017 7:13 PM Dictated By: SOULEYMANE ROYAL MD, MD 12 Transcribed By: BENNY on 04/06/171912 COPY TO: DOLORES WELSH MOLD FINISHER
[2017-10-13 22:34] LABS: BASOPHILS % 0.4 % (0.0-1.0); EOSINOPHILS # (AUTO) 0.1 (0.0-0.4); EOSINOPHILS % 1.1 % (0.0-6.0); HEMATOCRIT 27.9 % (34.2-44.1); HEMOGLOBIN 8.9 g/dL (12.0-16.0); LYMPHOCYTES # (AUTO) 1.8 (1.0-3.2); LYMPHOCYTES % 17.1 % (18.0-39.1); MEAN CORPUSCULAR HEMOGLOBIN 29.1 pg (28-32); MEAN CORPUSCULAR HGB CONC 31.9 g/dL (31-35); MEAN CORPUSCULAR VOLUME 91.2 fL (81-99); MONOCYTES # (AUTO) 0.5 (0.2-0.8); MONOCYTES % 4.5 % (4.4-11.3); NEUTROPHILS # (AUTO) 7.8 (2.1-6.9); NEUTROPHILS % 75.2 % (38.7-80.0); PLATELET COUNT 279 x10e3/uL (140-360); RED BLOOD COUNT 3.06 x10e6/uL (3.6-5.1); RED CELL DISTRIBUTION WIDTH 17.1 % (11.7-14.4)
[2017-10-13 22:54] LABS: ALBUMIN 2.5 g/dL (3.5-5.0); ALBUMIN/GLOBULIN RATIO 0.7 (0.8-2.0); ALKALINE PHOSPHATASE 88 IU/L (40-150); ANION GAP 13.2 mmol/L (8-16); BLOOD UREA NITROGEN 21 mg/dL (7-26); BUN/CREATININE RATIO 16 (6-25); CALCIUM 8.8 mg/dL (8.4-10.2); CARBON DIOXIDE 27 mmol/L (22-29); CHLORIDE 105 mmol/L (98-107); CREATINE KINASE 7 IU/L (29-168); CREATININE, SERUM 1.31 mg/dL (0.57-1.11); EST GLOMERULAR FILTRATION RATE 39 ML/MIN (60-); GLUCOSE 109 mg/dL (74-118); POTASSIUM 3.2 mmol/L (3.5-5.1); SODIUM 142 mmol/L (136-145)
[2017-10-13 22:55] LABS: ALANINE AMINOTRANSFERASE < 6 IU/L (0-55)
[2017-10-13 23:54] LABS: BILIRUBIN,URINE 1+ (NEGATIVE); CLARITY,URINE HAZY (CLEAR); COLOR,URINE YELLOW (YELLOW); KETONES,URINE NEGATIVE (NEGATIVE); LEUKOCYTE ESTERASE ,URINE 2+ (NEGATIVE); NITRITE,URINE NEGATIVE (NEGATIVE); URINE UROBILINOGEN 0.2 mg/dL (0.2 - 1)
[2017-10-14] VITALS (7 sets, daily range): BP systolic 123–186; BP diastolic 56–92
[2017-10-14 00:01] LABS: PROTEIN,URINE DIPSTICK 1+ (NEGATIVE)
[2017-10-14 00:09] LABS: BACTERIA,URINE MANY /HPF; EPITHELIAL CELLS,URINE FEW /LPF; RBC,URINE 0-5 /HPF (0-5); WBC,URINE (MAN) >50 /HPF (0-5)
--- NOTE | 2017-10-14 00:14 | Diagnostic Imaging Report ---
EXAM: CHEST SINGLE (PORTABLE), AP 1 view INDICATION: Crushing chest pain COMPARISON: AP view of the chest August 20, 2017 FINDINGS: LINES/TUBES: None LUNGS: No consolidations or edema. Mild central bronchial thickening. PLEURA: No effusions or pneumothorax. HEART AND MEDIASTINUM: Normal size and contour. BONES AND SOFT TISSUES: No acute findings. IMPRESSION: No acute thoracic abnormality. Signed by: Dr. Noemy Zuniga M.D. on 10/14/2017 12:10 AM
[2017-10-14] MEDS ORDERED: CEFTRIAXONE SOD 1 GM VIAL IV SCH (01:00)
[2017-10-14] MEDS ORDERED: DEXTROSE 50% SYRINGE 50 ML IV PRN (01:00)
[2017-10-14] MEDS ORDERED: NITROGLYCERIN 0.4 MG SUBL SL PRN (01:00)
[2017-10-14] MEDS ORDERED: ONDANSETRON HCL INJ 2 MG/ML VIAL IV PRN (01:00)
[2017-10-14] MEDS ORDERED: ASPIRIN 81 MG CHEW TAB PO ONE (01:00)
[2017-10-14] MEDS ORDERED: SODIUM CHLORIDE FLUSH 10 ML SYR INJ PRN (01:00)
[2017-10-14] MEDS ORDERED: POTASSIUM CHLORIDE 20 MEQ TAB CR PO STA (01:16)
[2017-10-14 06:52] LABS: CREATINE KINASE MB 0.6 ng/mL (0-5.0)
[2017-10-14] MEDS: INSULIN REGULAR, HUMAN 100 UNIT/1 ML 3ML VIAL SQ SCH ×3 (07:30→16:30)
[2017-10-14] MEDS ORDERED: ASPIRIN 81 MG ENTERIC COATED PO SCH (09:00)
[2017-10-14 15:04] LABS: CREATINE KINASE MB 0.5 ng/mL (0-5.0)
[2017-10-14] MEDS ORDERED: DRONABINOL 2.5MG PO SCH (16:30)
== END 2017-10-14 18:27 ==
LOC: ER 22:08 → ERHOLD 10-14 01:00 → MED/SURG2 10-14 01:24
DX: R07.89 Other chest pain (principal); N30.00 Acute cystitis without hematuria; J44.9 Chronic obstructive pulmonary disease, unspecified; E11.9 Type 2 diabetes mellitus without complications
CPT/HCPCS: 36415 ×2; 71045; 80053; 81001; 82550 ×2; 82553 ×2; 82948; 83880; 84484 ×2; 85025; 93005; G0378; J0696

== ENCOUNTER 2017-11-14 18:31 | Inpatient (IN) | payer MEDICARE ==
[~2017-11-14] VITALS: Ht 170.2 cm; Wt 57.7 kg
--- OUTSIDE RECORDS SUMMARY | 2017-11-14 18:34 | XMS REPORT | Continuity of Care Document ---
Author Author [facility] Organization [facility] Address [address] [place] [address] Phone Unavailable Care Team Providers Care X Ray Examiner Of Aircraft Name Role Phone KENYETTA MORGAN MD PCP Insurance Providers Guarantor Vanessa Padron Address [address] [place] [address] Email [email or web address] Payer Medicare A & B Policy Number [id number] Subscriber's Name Vanessa Padron Relationship 18 Self / Same As Patient Group Name RETIRED Effective Date 00 Advance Directives Directive Response Recorded Date/Time Does the patient have an advance directive? No 10/14/17 3:00am If yes, is advance directive on file with [facility]? No 08/20/17 10:58pm If not on file with [facility] will patient provide a copy? No 08/20/17 10:58pm Do you have a Directive to Physician? No 10/13/17 11:09pm Do you have a Medical Power of Ict Trainer? No 10/13/17 11:09pm Do you have an out of hospital Do Not Resuscitate Order? No 10/13/17 11:09pm Do you have any special needs we should be aware of? No 10/13/17 11:09pm Do you have a support person here with you today? Yes 10/13/17 11:09pm Did patient receive Notice of Privacy Practices? Yes 10/13/17 11:09pm Did patient receive patient rights and responsibilities? Yes 10/13/17 11:09pm Problems Medical Problem Onset Date Status Anemia Unknown Anemia Unknown Brain concussion 12/03/2015 Acute Chest pain Unknown Confused but orients easily 06/20/2014 Acute Contusion of rib on right side 12/03/2015 Acute Dehydration Unknown Gall stones Unknown Laceration of ear, external, complicated Unknown Acute Laceration of scalp 12/03/2015 Acute New onset seizure 12/03/2015 Acute Sepsis Unknown UTI (lower urinary tract infection) 06/20/2014 Acute UTI (urinary tract infection) Unknown Weak 06/20/2014 Acute Medications Current Home Medications Medication Dose Units Route Directions Days Qty Instructions Start Date Acetaminophen 325 Mg Tablet 650 Mg Oral Every 6 Hours as needed for Pain 5 Days Allopurinol 100 Mg Tablet 200 Mg Oral Daily 30 Tab Aspirin 81 Mg Tab.chew 81 Mg Oral Daily Clonidine Hcl 0.2 Mg Tablet 0.2 Mg Oral Three Times A Day Dicyclomine Hcl (Bentyl) 10 Mg Capsule 10 Mg Oral Three Times A Day Diltiazem Hcl (Diltiazem 24HR Cd) 180 Mg Cap.er.24h 180 Mg Oral Daily Escitalopram Oxalate (Lexapro) 10 Mg Tablet 20 Mg Oral Daily 30 Tab Fluconazole 100 Mg Tablet 100 Mg Oral Daily Furosemide 40 Mg Tablet 40 Mg Oral Daily 30 Tab Hydralazine Hcl 25 Mg Tab 100 Mg Oral Four Times Daily Hydrocodone Bit/Acetaminophen ([place] 10-325 Tablet) 1 Each Tablet 1 Tab Oral Three Times A Day as needed for Pain Isosorbide Mononitrate (Isosorbide Mononitrate Er) 30 Mg Tab.er.24h 30 Mg Oral Daily 30 Tab Levothyroxine Sodium 88 Mcg Tablet 88 Mcg Oral Daily 30 Tab Linezolid (Zyvox) 600 Mg Tablet 600 Mg Oral Twice A Day 30 Tab Lorazepam 0.5 Mg Tablet 0.5 Mg Oral As Needed as needed for Anxiety Losartan Potassium 25 Mg Tablet 25 Mg Oral Daily Metoprolol Succinate (Toprol Xl) 50 Mg Tab.er.24h 100 Mg Oral Daily 30 Tab Nystatin 15 Gm Cream..g. 1 Ea Topically Twice A Day Oxybutynin Chloride 5 Mg Tablet 5 Mg Oral Daily 30 Tab Pantoprazole Sodium 20 Mg Tablet.dr 40 Mg Oral Twice A Day Potassium Chloride (Klor-Con M20) 20 Meq Tabcr 20 Meq Oral Daily Pramipexole Di-Hcl (Mirapex) 0.25 Mg Tablet 0.5 Mg Oral Daily 30 Tab Pravastatin Sodium 40 Mg Tablet 40 Mg Oral Daily Prednisone 5 Mg Tablet 5 Mg Oral Daily Simethicone 80 Mg Chew 80 Mg Oral Every 6 Hours 30 Tab Sucralfate 1 Gm Tablet 1 Gm Oral Before Meals And At Bedtime Terazosin Hcl 1 Mg Capsule 1 Mg Oral Twice A Day 30 Cap Trazodone Hcl 50 Mg Tablet 150 Mg Oral Bedtime 30 Tab Past Home Medications Medication Directions Ordered Status Allopurinol 100 Mg Tablet, 200 Mg Oral Daily Discontinued Aspirin 325 Mg Tablet, 81 Mg Oral Daily Discontinued Aspirin 81 Mg Tablet, 81 Mg Oral Daily Discontinued Benazepril Hcl 20 Mg Tablet, Daily Discontinued Butalb/Acetaminophen/Caffeine (Cxnblf-Wldvjnhh-Zani 50-325-40) 1 Each Tablet, Oral As Needed Discontinued Cholecalciferol (Vitamin D3) (Vitamin D3) 1,000 Unit Tablet, 1000 Intlu Oral Daily Discontinued Clonidine Hcl 0.1 Mg Tablet, 1 Tab Oral Twice A Day Discontinued Clonidine Hcl 0.2 Mg Tablet, 0.2 Mg Oral Bedtime Discontinued Clonidine Hcl (Catapres) 0.2 Mg Tablet, 0.2 Mg Oral Twice A Day Discontinued Dicyclomine Hcl (Bentyl) 10 Mg Capsule, 10 Mg Oral Qid Prn Discontinued Fenofibrate,Micronized (Antara) 130 Mg Capsule, 130 Mg Oral Daily Discontinued Furosemide (Lasix) 40 Mg Tablet, 40 Mg Oral Daily Discontinued Furosemide (Lasix) 80 Mg Tablet, Twice A Day Discontinued Glyburide,Micronized (Glyburide Micronized) 3 Mg Tablet, Daily Discontinued Hydrocodone Bit/Acetaminophen (Hydrocodon-Acetaminophn 10-325) 1 Each Tablet, 10-325 Mg Oral Qid Prn Discontinued Isosorbide Dinitrate 30 Mg Tablet, 30 Mg Oral Daily Discontinued Levothyroxine Sodium (Levothroid) 88 Mcg Tablet, 88 Mcg Oral Daily Discontinued [id number] 1 Ea Patch, 2 Ea Topical Daily for Abdominal Pain 06/26/14 Discontinued Metoprolol Succinate (Toprol Xl) 100 Mg Tab.sr.24h, 100 Mg Oral Daily Discontinued Mometasone/Formoterol (Dulera 100 Mcg/5 Mcg Inhaler) 13 Gm Hfa.aer.ad, 1 Unit Inhalation As Needed as needed for Shortness Of Breath Discontinued Omeprazole 40 Mg Capsule.dr, Daily Discontinued Oxybutynin Chloride 5 Mg Tablet, 5 Mg Oral Daily Discontinued Pantoprazole Sodium (Protonix) 40 Mg Tablet.dr, 40 Mg Oral Daily Discontinued Potassium Chloride (Klor-Con) 20 Meq Packet, 20 Meq Oral Daily Discontinued Pravastatin Sodium 40 Mg Tablet, 40 Mg Oral Daily Discontinued Pravastatin Sodium 40 Mg Tablet, 40 Mg Oral Daily Discontinued Prednisone 5 Mg Tablet, 5 Mg Oral Daily Discontinued Trazodone Hcl 50 Mg Tablet, 1-3 Tab Oral Bedtime Prn Discontinued Family History Relationship Condition Age at Onset Recorded Date/Time 18 Daughter FH: thyroid disease 20's - 25 07/30/2015 10:08pm 32 Mother Family history of diabetes mellitus 50's - 60 07/30/2015 10:08pm 32 Mother Family history of hypertension 50's - 60 07/30/2015 10:08pm Social History Social History Problem Response Recorded Date/Time Onset Date Status Hx Psychiatric Problems No 10/14/2017 3:00am Not Applicable Not Applicable Hx Eating Disorder No 10/14/2017 3:00am Not Applicable Not Applicable Hx Substance Use Disorder No 10/14/2017 3:00am Not Applicable Not Applicable Hx Depression No 10/14/2017 3:00am Not Applicable Not Applicable Hx Alcohol Use No 10/14/2017 3:00am Not Applicable Not Applicable Hx Substance Use Treatment No 10/14/2017 3:00am Not Applicable Not Applicable Hx Physical Abuse No 10/14/2017 3:00am Not Applicable Not Applicable Smoking Status Start Date Stop Date Never Smoker Hospital Discharge Instructions No hospital discharge instruction information available. Plan of Care Discharge Date 10/14/17 6:27pm Disposition TRANSFER DETENTION Instructions/Education Provided Chest Pain - Chest Wall Prescriptions See Medication Section Additional Instructions/Education DIABETIC DIET Functional Status Query Response Date Recorded Ambulation Ability Maximum Assistance 1 person assist October 14, 2017 3:05am Toileting Ability Maximum Assistance October 14, 2017 3:05am Allergies, Adverse Reactions, Alerts Allergen Type Severity Reaction Status Last Updated atorvastatin calcium Allergy Unknown MUSCLE CRAMPS Active 08/20/17 Nifedipine Allergy Unknown SWELLING Active 08/20/17 Simvastatin Allergy Unknown EFFECTS MUSCLES Active 08/20/17 Mirtazapine Adverse Reaction Severe SEVERE PSYCHOSIS Active 08/20/17 Immunizations No immunization information available. Vital Signs Acute Vital Signs Vital Response Date/Time Temperature (Fahrenheit) 96.3 degrees F (97.6 - 99.5) 10/14/2017 4:45pm Pulse Pulse Rate (adult) 75 bpm (60 - 90) 10/14/2017 4:45pm Respiratory Rate 20 bpm (12 - 24) 10/14/2017 4:45pm Blood Pressure 151/67 mm Hg 10/14/2017 4:45pm Height 4 ft 9 in 10/14/2017 5:01am Weight 118.31 lb 10/14/2017 8:53am Body Mass Index 25.6 kg/m^2 10/14/2017 8:53am Results Laboratory Results Test Name Result Units Flags Reference Collection Date/Time Result Date/ Time Comments Hypochromasia SLIGHT 04/20/2017 6:21am 04/20/2017 12:17pm Influenza Virus Types A,B Antigen NEGATIVE NEGATIVE 04/17/2017 11: 35am 04/17/2017 12:18pm Arterial Blood pH 7.43 H 7.31-7.41 04/17/2017 10:24pm 04/17/2017 10: 53pm Arterial Blood Partial Pressure CO2 41 mmHg 41-51 04/17/2017 10:24pm 10:53pm Arterial Blood Partial Pressure O2 157 mmHg H 80-105 04/17/2017 10:24pm 04/17/2017 10:53pm Arterial Blood HCO3 28 mmol/L 23-28 04/17/2017 10:24pm 04/17/2017 10: 53pm Arterial Blood Base Excess 3.0 mmol/L -2 - 3 04/17/2017 10:24pm 2016 10:53pm Arterial Blood Oxygen Saturation 99.0 % H 95-98 04/17/2017 10:24pm 04/17 10:53pm Pt on 2L NC Differential Total Cells Counted 100 07/19/2017 5:56am 07/19/2017 9 :18am Neutrophils % (Manual) 90 % H 40-74 07/19/2017 5:56am 07/19/2017 9:18am Band Neutrophils % 1 % 07/19/2017 5:56am 07/19/2017 9:18am Lymphocytes % (Manual) 4 % L 19-48 07/19/2017 5:56am 07/19/2017 9:18am Monocytes % (Manual) 4 % 3.4-9.0 07/19/2017 5:56am 07/19/2017 9:18am Eosinophils % (Manual) 2 % 0-7 07/16/2017 4:37am 07/16/2017 5:06am Basophils % (Manual) 2 % H 0-1.5 07/15/2017 7:32am 07/15/2017 8:27am Metamyelocytes % 2 % H 0-0 07/16/2017 4:37am 07/16/2017 5:06am Reactive Lymphocytes 1 07/19/2017 5:56am 07/19/2017 9:18am Nucleated Red Blood Cells 1 07/19/2017 5:56am 07/19/2017 9:18am Platelet Estimate ADEQUATE 07/19/2017 5:56am 07/19/2017 9:18am Platelet Morphology Comment NORMAL 07/19/2017 5:56am 07/19/2017 9: 18am Poikilocytosis SLIGHT 07/17/2017 5:27am 07/17/2017 12:21pm Anisocytosis SLIGHT 07/19/2017 5:56am 07/19/2017 9:18am Microcytosis SLIGHT 07/16/2017 4:37am 07/16/2017 5:06am Ovalocytes FEW 07/17/2017 5:27am 07/17/2017 12:21pm [place] Bodies FEW 07/19/2017 5:56am 07/19/2017 9:18am [place] Cells SLIGHT 07/17/2017 5:27am 07/17/2017 12:21pm Red Cell Morphology Comment NORMAL 07/18/2017 5:30am 07/18/2017 10: 43am Prothrombin Time 17.9 seconds H 11.9-14.5 07/16/2017 4:37am 07/16/2017 4 :58am Prothromb Time International Ratio 1.40 07/16/2017 4:37am 2016 4:58am Oral Anticoagulant Therapy INR Values: 1. Low Intensity Therapy 1.5 - 2.0 2. Moderate Intensity Therapy 2.0 - 3.0 3. High Intensity Therapy(1) 2.5 - 3.5 4. High Intensity Therapy(2) 3.0 - 4.0 5. Panic Value INR > 5.0 Lactic Acid Level 15.4 MG/DL 4.5-19.8 07/16/2017 4:37am 07/16/2017 5: 00am Phosphorus Level 2.2 MG/DL L 2.3-4.7 07/17/2017 5:27am 07/17/2017 6: 29am Magnesium Level 1.5 MG/DL 1.3-2.1 07/19/2017 5:56am 07/19/2017 7:08am Stool Occult Blood POSITIVE H NEGATIVE 07/17/2017 10:10am 07/18/2017 11:42am Clostridium Difficile Toxin A & B NEGATIVE NEGATIVE 07/15/2017 7:35am 07/15/2017 11:04am Testing on stool aspirate specimens is outside lumber press operator claims since specimen type not validated on this assay. White Blood Count 10.36 x10e3/uL 4.8-10.8 10/13/2017 10:25pm 2017 10:35pm Red Blood Count 3.06 x10e6/uL L 3.6-5.1 10/13/2017 10:10/13/2017 10 :35pm Hemoglobin 8.9 g/dL L 12.0-16.0 10/13/2017 10:10/13/2017 10:35pm Hematocrit 27.9 % L 34.2-44.1 10/13/2017 10:10/13/2017 10:35pm Mean Corpuscular Volume 91.2 fL 81-99 10/13/2017 10:10/13/2017 10: 35pm Mean Corpuscular Hemoglobin 29.1 pg 28-32 10/13/2017 10:pm 2017 10:35pm Mean Corpuscular Hemoglobin Concent 31.9 g/dL 31-35 10/13/2017 10:10/13/2017 10:35pm Red Cell Distribution Width 17.1 % H 11.7-14.4 10/13/2017 10:2017 10:35pm Platelet Count 279 x10e3/uL 140-360 10/13/2017 10:pm 10/13/2017 10: 35pm Neutrophils (%) (Auto) 75.2 % 38.7-80.0 10/13/2017 10:25pm 10/13/2017 10:35pm Lymphocytes (%) (Auto) 17.1 % L 18.0-39.1 10/13/2017 10:25pm 10/13/2017 10:35pm Monocytes (%) (Auto) 4.5 % 4.4-11.3 10/13/2017 10:25pm 10/13/2017 10: 35pm Eosinophils (%) (Auto) 1.1 % 0.0-6.0 10/13/2017 10:25pm 10/13/2017 10: 35pm Basophils (%) (Auto) 0.4 % 0.0-1.0 10/13/2017 10:25pm 10/13/2017 10: 35pm IM GRANULOCYTES % 1.7 % H 0.0-1.0 10/13/2017 10:25pm 10/13/2017 10:35pm Neutrophils # (Auto) 7.8 H 2.1-6.9 10/13/2017 10:pm 10/13/2017 10: 35pm Lymphocytes # (Auto) 1.8 1.0-3.2 10/13/2017 10:25pm 10/13/2017 10: 35pm Monocytes # (Auto) 0.5 0.2-0.8 10/13/2017 10:pm 10/13/2017 10:35pm Eosinophils # (Auto) 0.1 0.0-0.4 10/13/2017 10:25pm 10/13/2017 10: 35pm Basophils # (Auto) 0.0 0.0-0.1 10/13/2017 10:pm 10/13/2017 10:35pm Absolute Immature Granulocyte (auto 0.18 x10e3/uL H 0-0.1 10/13/2017 10: 25pm 10/13/2017 10:35pm Urine Color YELLOW YELLOW 10/13/2017 10:45pm 10/14/2017 12:01am Urine Clarity HAZY CLEAR 10/13/2017 10:45pm 10/14/2017 12:01am Urine Specific Normal 1.015 1.010-1.025 10/13/2017 10:45pm 2017 12:01am Urine pH 5 5 - 7 10/13/2017 10:45pm 10/14/2017 12:01am Urine Leukocyte Esterase 2+ H NEGATIVE 10/13/2017 10:45pm 10/14/2017 12:01am Urine Nitrite NEGATIVE NEGATIVE 10/13/2017 10:45pm 10/14/2017 12: 01am Urine Protein 1+ H NEGATIVE 10/13/2017 10:45pm 10/14/2017 12:01am Urine Glucose (UA) NEGATIVE NEGATIVE 10/13/2017 10:45pm 10/14/2017 12 :01am Urine Ketones NEGATIVE NEGATIVE 10/13/2017 10:45pm 10/14/2017 12: 01am Urine Urobilinogen 0.2 mg/dL 0.2 - 1 10/13/2017 10:45pm 10/14/2017 12: 01am Urine Bilirubin 1+ H NEGATIVE 10/13/2017 10:45pm 10/14/2017 12:01am Urine Blood NEGATIVE NEGATIVE 10/13/2017 10:45pm 10/14/2017 12:01am Urine WBC >50 /HPF H 0-5 10/13/2017 10:45pm 10/14/2017 12:09am Urine RBC 0-5 /HPF 0-5 10/13/2017 10:45pm 10/14/2017 12:09am Urine Bacteria MANY /HPF H NONE 10/13/2017 10:45pm 10/14/2017 12:09am Urine Epithelial Cells FEW /LPF NONE 10/13/2017 10:45pm 10/14/2017 12: 09am Sodium Level 142 mmol/L 136-145 10/13/2017 10:25pm 10/13/2017 10:55pm Potassium Level 3.2 mmol/L L 3.5-5.1 10/13/2017 10:25pm 10/13/2017 10: 55pm Chloride Level 105 mmol/L 98-107 10/13/2017 10:25pm 10/13/2017 10:55pm Carbon Dioxide Level 27 mmol/L 10/13/2017 10:25pm 10/13/2017 10: 55pm Anion Gap 13.2 mmol/L 8-16 10/13/2017 10:2510/13/2017 10:55pm Blood Urea Nitrogen 21 mg/dL 7-10/13/2017 10:10/13/2017 10: 55pm Creatinine 1.31 mg/dL H 0.57-1.11 10/13/2017 10:10/13/2017 10:55pm BUN/Creatinine Ratio 16 6-25 10/13/2017 10:10/13/2017 10:55pm Estimat Glomerular Filtration Rate 39 ML/MIN L 60- 10/13/2017 10: 10:55pm Ranges were taken from the National Kidney Disease Education Program and the National Kid[employer] Foundation literature. Reference ranges: 60 or greater: Normal 16-59 (for 3 consecutive months): Chronic kidney disease 15 or less: Kidney failure Glucose Level 109 mg/dL 74-118 10/13/2017 10:10/13/2017 10:55pm Calcium Level 8.8 mg/dL 8.4-10.2 10/13/2017 10:10/13/2017 10:55pm Bedside Glucose 96 mg/dL 70-120 10/14/2017 11:05am 10/14/2017 12:52pm Meter ID: [id number] Total Bilirubin 0.4 mg/dL 0.2-1.2 10/13/2017 10:10/13/2017 10: 55pm Aspartate Amino Transf (AST/SGOT) 9 IU/L 5-34 10/13/2017 10:2017 10:55pm Alanine Aminotransferase (ALT/SGPT) < 6 IU/L 0-55 10/13/2017 10: 10:55pm Total Protein 5.9 g/dL L 6.5-8.1 10/13/2017 10:10/13/2017 10:55pm Albumin 2.5 g/dL L 3.5-5.0 10/13/2017 10:10/13/2017 10:55pm Globulin 3.4 g/dL 2.3-3.5 10/13/2017 10:10/13/2017 10:55pm Albumin/Globulin Ratio 0.7 L 0.8-2.0 10/13/2017 10:10/13/2017 10: 55pm Alkaline Phosphatase 88 IU/L 40-150 10/13/2017 10:25pm 10/13/2017 10: 55pm B-Type Natriuretic Peptide 120.9 pg/mL H 0-100 10/13/2017 10:25pm 2017 11:13pm Creatine Kinase 7 IU/L L 29-168 10/14/2017 2:20pm 10/14/2017 2:58pm Creatine Kinase MB 0.50 ng/mL 0-5.0 10/14/2017 2:20pm 10/14/2017 3: 04pm Troponin I 0.015 ng/mL 0-0.300 10/14/2017 2:20pm 10/14/2017 3:04pm Microbiology Results Procedure Source Organism/Result Collection Date/Time Result Date/Time Result Status Blood Culture Blood ESCHERICHIA COLI 07/15/2017 7:32am 07/20/2017 11:38am Final Urine Culture Urine,Clean Catch ESCHERICHIA COLI 07/15/2017 8:00am 2016 8:32am Final Blood Culture Blood NO GROWTH AFTER 5 DAYS, FINAL REPORT 08/20/2017 4:45pm 08/25/2017 5:39pm Final Procedures Procedure Status Date Provider(s) INSERTION OF INFUSION DEVICE INTO R ATRIUM, PERC APPROACH Completed 07/15/17 RADHA REYES MD EXCISION OF LOWER ESOPHAGUS, ENDO, DIAGN Completed 07/20/17 SABINO MORGAN MD EXCISION OF STOMACH, PYLORUS, ENDO, DIAGN Completed 07/20/17 SABINO MORGAN MD TRANSFUSE NONAUT RED BLOOD CELLS IN CENTRAL VEIN, PERC Completed 07/17/17 KENYETTA MORGAN MD X-ray of chest, two views Active 04/06/17 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 Computed tomography of brain without radiopaque contrast Active 04/17/17 NEDA MUNOZ MD Ultrasound guidance for vascular access Active 07/15/[address] of abdomen and pelvis without contrast Active 07/15/17 MARCE PIERRE MD Ultrasound, renal Active 07/16/17 GILSON BABIN MD Computed tomography of brain without radiopaque contrast Active 08/20/17 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 Encounters Encounter Location Arrival/Admit Date Discharge/Depart Date Attending Provider Discharged Inpatient (obs) [facility] 10/14/17 1:00am 09/02 6:27pm KENYETTA MORGAN MD Discharged Inpatient [facility] 08/20/17 7:08pm 08/25/17 6:40pm KENYETTA MORGAN MD Discharged Inpatient [facility] 07/15/17 8:18am 07/20/17 6:31pm KENYETTA MORGAN MD Departed Emergency Room [facility] 07/10/17 10:42am 07/10 2:31pm CHOLO KENT MD Discharged Inpatient [facility] 04/20/17 8:52am 04/21/17 3:29pm KENYETTA MORGAN MD Discharged Inpatient (obs) [facility] 04/06/17 9:14pm 5:30pm KENYETTA MORGAN MD
[2017-11-14] MEDS ORDERED: PIPER-TAZ 3.375 GM 50 ML IV STA (18:59)
[2017-11-14] MEDS ORDERED: SODIUM CHLORIDE 0.9% 1000ML 1,000 ML IV STA (18:59)
[2017-11-14 19:33] LABS: BASOPHILS % 0.3 % (0.0-1.0); EOSINOPHILS # (AUTO) 0.1 (0.0-0.4); EOSINOPHILS % 1.1 % (0.0-6.0); HEMATOCRIT 33.9 % (34.2-44.1); HEMOGLOBIN 10.7 g/dL (12.0-16.0); LYMPHOCYTES # (AUTO) 1.5 (1.0-3.2); LYMPHOCYTES % 12.7 % (18.0-39.1); MEAN CORPUSCULAR HEMOGLOBIN 28.7 pg (28-32); MEAN CORPUSCULAR HGB CONC 31.6 g/dL (31-35); MEAN CORPUSCULAR VOLUME 90.9 fL (81-99); MONOCYTES # (AUTO) 0.4 (0.2-0.8); MONOCYTES % 3.7 % (4.4-11.3); NEUTROPHILS # (AUTO) 9.7 (2.1-6.9); PLATELET COUNT 339 x10e3/uL (140-360); RED BLOOD COUNT 3.73 x10e6/uL (3.6-5.1); RED CELL DISTRIBUTION WIDTH 15.9 % (11.7-14.4)
--- NOTE | 2017-11-14 19:41 | Diagnostic Imaging Report ---
CHEST SINGLE (PORTABLE), 11/14/2017 6:59 PM Technique: CHEST SINGLE (PORTABLE) Comparison: 10/13/2017 Clinical history: Shortness of breath Findings: See Impression Impression: 1. Stable mildly enlarged cardiac silhouette. Aortic calcifications. 2. No consolidation or edema. Possible small effusions. Signed by: Dr Nitza Medrano MD on 11/14/2017 7:37 PM
[2017-11-14 19:45] LABS: INR 1.33; PROTHROMBIN TIME 15.5 seconds (11.9-14.5)
--- NOTE | 2017-11-14 19:51 | Diagnostic Imaging Report ---
CT ABDOMEN/PELVIS WO Clinical history: Diffuse abdominal pain, history of stones Technique: Volumetric CT scan of the abdomen and pelvis was performed. No intravenous or enteric contrast was administered. Coronal, sagittal and axial images are generated from source data. Comparison: 07/15/2017 Findings: Lower Thorax: Small pericardial and bilateral pleural effusions. Kidneys/Ureters/Bladder: Stable exophytic left renal cystic lesions. No hydronephrosis or stones. Minimal circumferential bladder wall thickening given degree of distention. Other: Lack of IV contrast decreases sensitivity in evaluating abdominal and pelvic organs. Unenhanced liver, spleen, adrenals are unremarkable. Status post cholecystectomy and hysterectomy. There is a 1.6 cm pancreatic body cystic lesion, more conspicuous than on prior. Moderate stool burden, with inflammatory changes and fluid in the left paracolic gutter. Focal short segment narrowing of the descending colon (coronal image 42). Diverticulosis. 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 Bones/Soft tissues: Severe multilevel degenerative changes with unchanged T11 and T12 compression deformities. Impression: 1. Findings which can be seen with cystitis. Patient reportedly has recent history of UTI. 2. Moderate stool burden with inflammatory changes and fluid in the left paracolic gutter which could be related to colitis/stercoral colitis. 3. Focal narrowing of the descending colon, possibly related to peristalsis. Correlate with colonoscopy to exclude neoplasm. Signed by: Dr Nitza Medrano MD on 11/14/2017 7:47 PM
[2017-11-14 19:53] LABS: ALBUMIN 2.5 g/dL (3.5-5.0); ALBUMIN/GLOBULIN RATIO 0.8 (0.8-2.0); ANION GAP 14.5 mmol/L (8-16); CALCIUM 9.1 mg/dL (8.4-10.2); CREATININE, SERUM 1.4 mg/dL (0.57-1.11); POTASSIUM 3.5 mmol/L (3.5-5.1)
[2017-11-14] MEDS ORDERED: MORPHINE SULFATE 2 MG/ML SYR IV ONE (20:00)
[2017-11-14] MEDS ORDERED: ONDANSETRON HCL INJ 2 MG/ML VIAL IV ONE (20:00)
[2017-11-14 20:07] LABS: BILIRUBIN,URINE NEGATIVE (NEGATIVE); CLARITY,URINE HAZY (CLEAR); COLOR,URINE YELLOW (YELLOW); KETONES,URINE NEGATIVE (NEGATIVE); LEUKOCYTE ESTERASE ,URINE 2+ (NEGATIVE); NITRITE,URINE POSITIVE (NEGATIVE); PROTEIN,URINE DIPSTICK TRACE (NEGATIVE); URINE UROBILINOGEN 0.2 mg/dL (0.2 - 1)
[2017-11-14 20:18] LABS: BACTERIA,URINE MODERATE /HPF; EPITHELIAL CELLS,URINE FEW /LPF; RBC,URINE 0-5 /HPF (0-5); WBC,URINE (MAN) >50 /HPF (0-5)
[2017-11-14 20:38] LABS: MAGNESIUM 1.3 MG/DL (1.3-2.1)
[2017-11-14 20:45] LABS: CREATINE KINASE MB 1.3 ng/mL (0-5.0)
[2017-11-14] MEDS: METRONIDAZOLE 500MG/NS 100ML 100 ML IV SCH (21:00)
[2017-11-14] MEDS: CEFEPIME HCL 2 GM VIAL IV SCH (21:10)
[2017-11-14] MEDS ORDERED: DEXTROSE 50% SYRINGE 50 ML IV PRN (21:15)
[2017-11-14] MEDS: SODIUM CHLORIDE 0.9% 1000ML 1,000 ML IV SCH (21:15)
[2017-11-14 21:23] LABS: FREE THYROXINE INDEX 1.8973 (1.4-3.8)
--- NOTE | 2017-11-14 21:29 | Diagnostic Imaging Report ---
EXAMINATION: Head CT HISTORY: Possible seizure, TIA COMPARISON: Head CT on 08/20/2017 TECHNIQUE: Multidetector axial images were obtained without contrast from the foramen magnum to the vertex . The images were reconstructed using brain and bone algorithms. Thin section brain images were reformatted into coronal and sagittal planes. Intravenous contrast: None. Motion/streaking artifact limits the evaluation of the skull base and posterior cranial fossa. FINDINGS: Parenchyma: 1. Unchanged moderate confluent supratentorial white matter chronic microvascular ischemic changes. 2. No mass or hemorrhage. No CT evidence of acute territorial vascular insult. Extra-axial spaces:No abnormal density. No extra-axial fluid collections Brain volume: Normal for age. Ventricles: No hydrocephalus or displacement. Arteries: No density suggestive of thrombus. Dural sinuses: No abnormal density. Extra-axial spaces: No abnormal density. Foramen magnum: No mass, Chiari malformation, or basilar invagination. Sella: No obvious mass. Paranasal/mastoid sinuses: Imaged portions unremarkable. Skull/Scalp: No lytic or blastic lesions. No fractures. IMPRESSION: 1. No acute intracranial abnormalities. Particularly no hemorrhage or acute territorial cortical infarct. 2. Persistent moderate chronic microvascular ischemic changes when compared to head CT on 08/20/2017 Signed by: Dr. Dulce Fuentes M.D. on 11/14/2017 9:25 PM
[2017-11-14 22:50] VITALS: BP 136/64
[2017-11-14 23:00] VITALS: BP 136/64
[2017-11-14 23:05] VITALS: BP 134/60
[2017-11-14 23:20] VITALS: BP 126/58
[2017-11-14 23:35] VITALS: BP 125/75
[2017-11-14 23:50] VITALS: BP 118/55
[2017-11-15] VITALS (45 sets, daily range): BP systolic 91–173; BP diastolic 44–88
[2017-11-15] MEDS: PIPERACILLIN/TAZO 2.25 GM 50 ML IV SCH ×4 (01:50→20:10)
[2017-11-15] MEDS: ONDANSETRON HCL INJ 2 MG/ML VIAL IV PRN ×3 (01:55→15:31)
[2017-11-15] MEDS: METRONIDAZOLE 500MG/NS 100ML 100 ML IV SCH ×4 (02:30→21:00)
[2017-11-15] MEDS: MORPHINE SULFATE 2 MG/ML SYR IV PRN ×2 (05:55→15:31)
[2017-11-15 06:14] LABS: BASOPHILS # (AUTO) 0.1 (0.0-0.1); BASOPHILS % 0.3 % (0.0-1.0); EOSINOPHILS # (AUTO) 0.1 (0.0-0.4); EOSINOPHILS % 0.7 % (0.0-6.0); HEMATOCRIT 32.4 % (34.2-44.1); HEMOGLOBIN 10.2 g/dL (12.0-16.0); LYMPHOCYTES # (AUTO) 1.9 (1.0-3.2); LYMPHOCYTES % 12.6 % (18.0-39.1); MEAN CORPUSCULAR HEMOGLOBIN 28.7 pg (28-32); MEAN CORPUSCULAR HGB CONC 31.5 g/dL (31-35); MEAN CORPUSCULAR VOLUME 91.3 fL (81-99); MONOCYTES # (AUTO) 0.9 (0.2-0.8); MONOCYTES % 5.8 % (4.4-11.3); NEUTROPHILS # (AUTO) 12.1 (2.1-6.9); NEUTROPHILS % 79.7 % (38.7-80.0); PLATELET COUNT 294 x10e3/uL (140-360); RED BLOOD COUNT 3.55 x10e6/uL (3.6-5.1); RED CELL DISTRIBUTION WIDTH 15.6 % (11.7-14.4)
[2017-11-15] MEDS: SODIUM CHLORIDE 0.9% 1000ML 1,000 ML IV SCH ×2 (06:35→20:10)
[2017-11-15 06:41] LABS: CREATINE KINASE MB 1.5 ng/mL (0-5.0)
[2017-11-15 07:24] LABS: ALBUMIN 2.1 g/dL (3.5-5.0); ALBUMIN/GLOBULIN RATIO 0.8 (0.8-2.0); ANION GAP 14.4 mmol/L (8-16); CALCIUM 8.2 mg/dL (8.4-10.2); CREATININE, SERUM 1.44 mg/dL (0.57-1.11); POTASSIUM 3.4 mmol/L (3.5-5.1)
[2017-11-15] MEDS: INSULIN REGULAR, HUMAN 100 UNIT/1 ML 3ML VIAL SQ SCH ×4 (07:30→21:00)
[2017-11-15] MEDS: CEFEPIME HCL 2 GM VIAL IV SCH ×2 (09:04→20:10)
[2017-11-15 14:55] LABS: CREATINE KINASE MB 2.8 ng/mL (0-5.0)
--- NOTE | 2017-11-15 19:16 | Consultation ---
DATE OF CONSULTATION: November 15, 2017 at 5 p.m. NEUROLOGICAL CONSULTATION REASON FOR CONSULTATION: Altered mental status, possible seizure. This is an 82-year-old female who lives in a half-way. Apparently, she was brought to the hospital because of several episodes of syncope by history by reviewing the chart. The daughter said that she had some tonic activity during this syncope. She never had any seizure n the past. She was brought to the emergency room and admitted with urosepsis. PAST MEDICAL HISTORY: She has history of hypertension, diabetes mellitus, frequent urinary tract infection, renal insufficiency, coronary artery disease, hypothyroidism. MEDICATIONS: List of medications has been reviewed electronically. No family member present at this time. REVIEW OF SYSTEMS: Noncontributory. PHYSICAL EXAMINATION VITAL SIGNS: Blood pressure 138/74, pulse 67, afebrile. LUNGS: Clear to auscultation. HEART: Regular sinus rhythm. No murmur. ABDOMEN: Soft and nontender. No organomegaly. MUSCULOSKELETAL: No edema, no cyanosis. NEUROLOGIC: The patient is awake. She is oriented to time and oriented to place. Speech is clear with no dysarthria or dysphasia. She is complaining of multiple pains in the arms, mostly on the right side. She denies any headache. She denies any visual disturbance. No swallowing difficulty. She is oriented x3. She follows commands well. Cranial nerves: Pupils are both equal and reactive. Extraocular movements were full. Visual field was normal. No facial weakness. Tongue protrudes midline. Palatal movement is normal. Motor power: The patient is able to elevate arms and legs against gravity without any difficulty. Elevation of the arms 5/5. Flexion, extension of the arms 5/5. Dorsiflexion of the wrist 5/5. Hand bale stacker 5/5. The patient also elevated each leg approximately 60 degrees without any difficulty. Flexion of the hips 5/5. Flexion and extension of the knees 5/5. Dorsiflexion of the ankles 5/5 bilaterally. Plantar stimulation 5/5 bilaterally. Deep tendon reflexes: Triceps, biceps, radials 1+. Knee jerk absent and ankle jerk absent bilaterally. Plantar stimulation down bilaterally. HEAD: Normocephalic. NECK: Supple. Carotid pulsations were present bilaterally. There were no bruits. LABORATORY DATA: CBC on admission yesterday was 12,000, and now is 15,100, hemoglobin 10.2, hematocrit 32.4, platelets 294,000. Chemistry: Sodium 139, potassium 3.4, BUN 20, creatinine 1.44. Estimated GFR is 32. Liver enzymes are normal. Glucose 93 and 109. Urinalysis: WBC greater than 50, protein trace, blood positive, nitrite positive, bacteria moderate. Urine cultures and blood cultures pending. CT scan of the brain shows no acute pathology. There is chronic small vessel disease seen bilaterally. IMPRESSION 1. Syncopal spell, unspecified. 2. Urosepsis. 3. Hypertension. 4. Diabetes mellitus type 2. 5. According to the history, some short term memory loss. RECOMMENDATIONS: The patient has never had any seizures, and I doubt this was seizure or syncope. Will monitor closely, but I do not think we need to put her on any anticonvulsant medication at the present time. Will monitor closely. Job#: [id number]
[2017-11-16] VITALS (19 sets, daily range): BP systolic 107–173; BP diastolic 50–79
[2017-11-16] MEDS: PIPERACILLIN/TAZO 2.25 GM 50 ML IV SCH ×4 (02:00→20:00)
[2017-11-16] MEDS: METRONIDAZOLE 500MG/NS 100ML 100 ML IV SCH ×4 (03:16→21:40)
[2017-11-16] MEDS: SODIUM CHLORIDE 0.9% 1000ML 1,000 ML IV SCH ×2 (05:55→13:15)
[2017-11-16 06:25] LABS: BASOPHILS # (AUTO) 0.1 (0.0-0.1); BASOPHILS % 0.5 % (0.0-1.0); EOSINOPHILS # (AUTO) 0.2 (0.0-0.4); EOSINOPHILS % 1.8 % (0.0-6.0); HEMATOCRIT 29.4 % (34.2-44.1); HEMOGLOBIN 9.2 g/dL (12.0-16.0); LYMPHOCYTES # (AUTO) 2.9 (1.0-3.2); LYMPHOCYTES % 23.1 % (18.0-39.1); MEAN CORPUSCULAR HEMOGLOBIN 28.8 pg (28-32); MEAN CORPUSCULAR HGB CONC 31.3 g/dL (31-35); MEAN CORPUSCULAR VOLUME 91.9 fL (81-99); MONOCYTES # (AUTO) 0.9 (0.2-0.8); NEUTROPHILS # (AUTO) 8.3 (2.1-6.9); NEUTROPHILS % 66.1 % (38.7-80.0); PLATELET COUNT 245 x10e3/uL (140-360); RED CELL DISTRIBUTION WIDTH 15.9 % (11.7-14.4)
[2017-11-16 07:10] LABS: ALBUMIN 1.8 g/dL (3.5-5.0); ALBUMIN/GLOBULIN RATIO 0.7 (0.8-2.0); ANION GAP 10.9 mmol/L (8-16); CALCIUM 7.5 mg/dL (8.4-10.2); CREATININE, SERUM 1.39 mg/dL (0.57-1.11)
[2017-11-16 07:26] LABS: POTASSIUM 2.9 mmol/L (3.5-5.1)
[2017-11-16] MEDS: INSULIN REGULAR, HUMAN 100 UNIT/1 ML 3ML VIAL SQ SCH ×4 (07:30→20:59)
[2017-11-16] MEDS ORDERED: POTASSIUM CHLORIDE 20 MEQ TAB CR PO STA (07:57)
[2017-11-16] MEDS: MORPHINE SULFATE 2 MG/ML SYR IV PRN ×2 (09:09→20:32)
[2017-11-16] MEDS: CEFEPIME HCL 2 GM VIAL IV SCH ×2 (09:34→21:40)
[2017-11-16] MEDS ORDERED: POTASSIUM CHLORIDE 20 MEQ TAB CR PO SCH ×6 (10:00→14:00)
[2017-11-16] MEDS: ONDANSETRON HCL INJ 2 MG/ML VIAL IV PRN (20:32)
[2017-11-17 01:34] VITALS: BP 168/91
[2017-11-17] MEDS: ONDANSETRON HCL INJ 2 MG/ML VIAL IV PRN (01:39)
[2017-11-17] MEDS: PIPERACILLIN/TAZO 2.25 GM 50 ML IV SCH ×4 (01:39→22:20)
[2017-11-17] MEDS: METRONIDAZOLE 500MG/NS 100ML 100 ML IV SCH ×3 (02:54→14:30)
[2017-11-17 05:56] VITALS: BP 165/80
[2017-11-17 06:15] LABS: BASOPHILS # (AUTO) 0.1 (0.0-0.1); BASOPHILS % 0.6 % (0.0-1.0); EOSINOPHILS # (AUTO) 0.2 (0.0-0.4); EOSINOPHILS % 2.4 % (0.0-6.0); HEMATOCRIT 28.4 % (34.2-44.1); HEMOGLOBIN 8.6 g/dL (12.0-16.0); LYMPHOCYTES # (AUTO) 1.3 (1.0-3.2); LYMPHOCYTES % 16.9 % (18.0-39.1); MEAN CORPUSCULAR HEMOGLOBIN 27.9 pg (28-32); MEAN CORPUSCULAR HGB CONC 30.3 g/dL (31-35); MEAN CORPUSCULAR VOLUME 92.2 fL (81-99); MONOCYTES # (AUTO) 0.5 (0.2-0.8); MONOCYTES % 6.1 % (4.4-11.3); NEUTROPHILS # (AUTO) 5.7 (2.1-6.9); PLATELET COUNT 242 x10e3/uL (140-360); RED BLOOD COUNT 3.08 x10e6/uL (3.6-5.1)
[2017-11-17 06:44] LABS: ALBUMIN 1.6 g/dL (3.5-5.0); ALBUMIN/GLOBULIN RATIO 0.6 (0.8-2.0); ANION GAP 10.7 mmol/L (8-16); CALCIUM 7.6 mg/dL (8.4-10.2); CREATININE, SERUM 1.18 mg/dL (0.57-1.11); POTASSIUM 3.7 mmol/L (3.5-5.1)
[2017-11-17] MEDS: INSULIN REGULAR, HUMAN 100 UNIT/1 ML 3ML VIAL SQ SCH ×4 (07:30→21:00)
[2017-11-17 08:00] VITALS: BP 192/114
[2017-11-17] MEDS: CEFEPIME HCL 2 GM VIAL IV SCH ×2 (08:10→22:20)
[2017-11-17] MEDS ORDERED: LABETALOL HCL 5 MG/ML 20ML VIAL IV STA (09:12)
[2017-11-17] MEDS ORDERED: LABETALOL HCL 5 MG/ML 20ML VIAL IV SCH (09:30)
[2017-11-17] MEDS: DEXTROSE 5% 1,000 ML IV SCH ×3 (09:35→22:30)
[2017-11-17 12:00] VITALS: BP 165/102
[2017-11-17 16:00] VITALS: BP 180/78
[2017-11-17] MEDS: PANTOPRAZOL 40MG/SOD CHL 0.9% 50 ML IV SCH ×2 (17:44→21:45)
[2017-11-17] MEDS: LABETALOL HCL 5 MG/ML 20ML VIAL IV PRN (17:44)
[2017-11-17 20:00] VITALS: BP 178/85
--- NOTE | 2017-11-17 20:38 | Diagnostic Imaging Report ---
HUMERUS RIGHT 2+VIEWS HISTORY: Pain. COMPARISON: None available. FINDINGS: Bones: No acute displaced fracture. Osseous alignment is within normal limits. Joints: The joint spaces are well-maintained. Soft tissues: The soft tissues appear unremarkable. IMPRESSION: No acute radiographic abnormality. Signed by: DR. Nick Thompson MD on 11/17/2017 8:35 PM
--- NOTE | 2017-11-17 20:43 | Diagnostic Imaging Report ---
EXAMINATION: CHEST 2 VIEWS INDICATION: \S\CON \S\[id number] \S\1999 COMPARISON: Chest radiograph 04/06/2017 FINDINGS: PA and lateral views TUBES and LINES: None. LUNGS: Lungs are well inflated. Lungs are clear. There is no evidence of pneumonia or pulmonary edema. PLEURA: Possible trace pleural effusions. HEART AND MEDIASTINUM: Small hiatal hernia. Aortic calcifications. Cardiac size is mildly enlarged. BONES AND SOFT TISSUES: Stable T11 and T12 compression deformities. Soft tissues are unremarkable. UPPER ABDOMEN: No free air under the diaphragm. IMPRESSION: No acute thoracic abnormality. Signed by: DR. Nick Thompson MD on 11/17/2017 8:40 PM
--- NOTE | 2017-11-17 20:46 | Diagnostic Imaging Report ---
EXAM: ABDOMEN-1VIEW (KUB), DATE: 11/17/2017 4:34 PM INDICATION: Right arm pain. Dehydration. COMPARISON: Chest radiograph 11/17/2017, CT abdomen and pelvis 11/14/2017 FINDINGS: LINES/TUBES: None BOWEL PATTERN: No evidence for obstruction. Large amount stool in the colon. SOFT TISSUES: Aortic and vascular calcifications. No mass effect. Cholecystectomy clips in the right upper quadrant. LUNG BASES: Please refer to same-day chest radiograph. BONES: Stable T11 and T12 compression deformities. IMPRESSION: Large amount of stool in the colon. Signed by: DR. Nick Thompson MD on 11/17/2017 8:42 PM
[2017-11-18] VITALS: BP 175/120
[2017-11-18] MEDS: LABETALOL HCL 5 MG/ML 20ML VIAL IV PRN ×4 (00:45→21:30)
[2017-11-18] MEDS: PIPERACILLIN/TAZO 2.25 GM 50 ML IV SCH ×3 (01:36→14:00)
[2017-11-18] MEDS: PANTOPRAZOL 40MG/SOD CHL 0.9% 50 ML IV SCH ×6 (02:45→22:45)
[2017-11-18 04:00] VITALS: BP 172/108
[2017-11-18 06:15] LABS: BASOPHILS # (AUTO) 0.1 (0.0-0.1); BASOPHILS % 0.7 % (0.0-1.0); EOSINOPHILS # (AUTO) 0.2 (0.0-0.4); EOSINOPHILS % 2.3 % (0.0-6.0); HEMATOCRIT 29.5 % (34.2-44.1); HEMOGLOBIN 9.2 g/dL (12.0-16.0); LYMPHOCYTES # (AUTO) 1.6 (1.0-3.2); LYMPHOCYTES % 16.2 % (18.0-39.1); MEAN CORPUSCULAR HEMOGLOBIN 27.5 pg (28-32); MEAN CORPUSCULAR HGB CONC 31.2 g/dL (31-35); MEAN CORPUSCULAR VOLUME 88.3 fL (81-99); MONOCYTES # (AUTO) 0.7 (0.2-0.8); MONOCYTES % 6.4 % (4.4-11.3); NEUTROPHILS # (AUTO) 7.4 (2.1-6.9); NEUTROPHILS % 72.8 % (38.7-80.0); PLATELET COUNT 277 x10e3/uL (140-360); RED BLOOD COUNT 3.34 x10e6/uL (3.6-5.1); RED CELL DISTRIBUTION WIDTH 15.6 % (11.7-14.4)
[2017-11-18 06:20] VITALS: BP 175/82
[2017-11-18 06:53] LABS: ALBUMIN 1.7 g/dL (3.5-5.0); ALBUMIN/GLOBULIN RATIO 0.7 (0.8-2.0); ANION GAP 9.7 mmol/L (8-16); CALCIUM 7.5 mg/dL (8.4-10.2); CREATININE, SERUM 1.08 mg/dL (0.57-1.11)
[2017-11-18 06:55] LABS: POTASSIUM 2.7 mmol/L (3.5-5.1)
[2017-11-18] MEDS: INSULIN REGULAR, HUMAN 100 UNIT/1 ML 3ML VIAL SQ SCH ×4 (07:30→21:00)
[2017-11-18 08:00] VITALS: BP 180/99
[2017-11-18] MEDS ORDERED: CLONIDINE HCL 0.1 MG/24 HR 1 EA PATCH TOP ONE (09:00)
[2017-11-18] MEDS ORDERED: POTASSIUM CHLORIDE 20MEQ/100ML 100 ML IV ONE ×3 (09:00)
[2017-11-18] MEDS: CEFEPIME HCL 2 GM VIAL IV SCH (09:15)
[2017-11-18] MEDS ORDERED: POTASSIUM CHLORIDE 20MEQ/100ML 100 ML IV SCH (10:00)
[2017-11-18] MEDS: POTASSIUM CHLORIDE 20MEQ/100ML 100 ML IV SCH ×2 (10:00→14:47)
[2017-11-18] MEDS ORDERED: POTASSIUM CHLORIDE 20 MEQ TAB CR PO ONE ×2 (10:00→12:00)
[2017-11-18 12:00] VITALS: BP 166/102
[2017-11-18] MEDS: DEXTROSE 5% 1,000 ML IV SCH (15:15)
[2017-11-18 16:00] VITALS: BP 183/84
[2017-11-18] MEDS: MEROPENEM 500MG 250 MG in SODIUM CHLORIDE 0.9% 50ML 50 ML IV SCH (18:16)
--- NOTE | 2017-11-18 20:17 | Diagnostic Imaging Report ---
EXAMINATION: Head CT HISTORY: Evaluate for acute stroke COMPARISON: None. TECHNIQUE: Multidetector axial images were obtained without contrast from the foramen magnum to the vertex . The images were reconstructed using brain and bone algorithms. Thin section brain images were reformatted into coronal and sagittal planes. Intravenous contrast: None. Motion/streaking artifact limits the evaluation of the skull base and posterior cranial fossa. FINDINGS: Parenchyma: 1. Persistent mild confluent supratentorial white matter chronic microvascular ischemic changes. 2. No mass or hemorrhage. No CT evidence of acute territorial vascular insult. Extra-axial spaces:No abnormal density. No extra-axial fluid collections Brain volume: Normal for age. Ventricles: No hydrocephalus or displacement. Arteries: No density suggestive of thrombus. Dural sinuses: No abnormal density. Extra-axial spaces: No abnormal density. Foramen magnum: No mass, Chiari malformation, or basilar invagination. Sella: No obvious mass. Paranasal/mastoid sinuses: Imaged portions unremarkable. Skull/Scalp: No lytic or blastic lesions. No fractures. Unchanged nonspecific peripherally calcified extra-axial focus in the left superior parietal convexity without associated mass effect. IMPRESSION: 1. No acute intracranial hemorrhage or cortical infarcts. 2. Unchanged mild chronic microvascular ischemic changes. Signed by: Dr. Dulce Fuentes M.D. on 11/18/2017 8:13 PM
[2017-11-19] MEDS: DEXTROSE 5% 1,000 ML IV SCH ×2 (00:59→11:15)
--- NOTE | 2017-11-19 01:56 | Consultation ---
DATE OF CONSULTATION: REASON FOR CONSULTATION: UTI, altered mental status, recommendation for antibiotic. Thank you so much for asking me to see this patient. HISTORY OF PRESENT ILLNESS: This patient who is an 82-year-old white female who is known to me from before. The patient was recently in the hospital last couple of months twice for UTI. She was transferred to a senior living. She was doing fairly well. She went to [facility] Wednesday with her family. The patient apparently while on her way back to the senior living, she had an episode, seems like almost seizure according to her daughter. She had some clonic activity. She was brought to the emergency room. In the emergency room, she was evaluated. She was diagnosed with UTI and patient was admitted. I was asked to see her today by the family and Dr. Miles to assess the patient. The patient seems to be easily arousable, you can talk to her, answers some questions, basic questions she can answer but then she goes back to sleep. The patient also does not seem to be fully alert like she has been before. I have spent quite some time with the family, her daughter, reviewing the record with them and also was Dr. Farnk Miles on 2 occasions on November 18, 2017. The patient who has history of hypertension, diabetes mellitus, recurrent UTI, renal insufficiency, coronary artery disease, and hypothyroidism, comes into the emergency room because of concern was that she had a tonic-clonic seizure activity. Patient was admitted. PAST MEDICAL HISTORY: Hypertension, diabetes mellitus, nephropathy, and renal failure stage 3. ALLERGIES: SIMVASTATIN, NIFEDIPINE, ATORVASTATIN. SOCIAL HISTORY: She a senior living, but no drug abuse or alcohol abuse. FAMILY HISTORY: Otherwise hypertension. REVIEW OF SYSTEMS: She denies any specific complaints at the present time as mentioned above, but besides as described above, there is nothing new, but the patient seems to be more sleepy recently. Her past medical history mentioned above. PAST SURGICAL HISTORY: Tonsillectomy, cholecystectomy, and bladder suspension. REVIEW OF SYSTEMS HEENT: There is no headache, visual changes or hearing changes. GI: There is no nausea, no vomiting, no diarrhea. CARDIAC: There is no arrhythmia or chest pain. NEURO: No seizure activity currently. Easily going to sleep as mentioned above but denies any joint there in no pain or erythema. : Negative. LABORATORY DATA: White count is 10.11, hemoglobin 9.2, hematocrit 29, and platelet of 277,000. Her sodium 140, potassium 2.7, and creatinine 1.08. Her culture with this visit, the urine culture was contamination. Blood cultures were negative, but there were cultures in the chart from the senior living, she had E. coli multidrug resistant, sensitive only to meropenem MEDICATION LIST: Reviewed. She is currently on Rocephin, Zosyn, and clonidine. IMPRESSIONS 1. Altered mental status, sleepiness, maybe urinary tract infection. Suggest we put her on meropenem 250 q.8 h. 2. Maybe seizure activity. Neurology is following. 3. The patient overall has seemed to be getting worse over the last 6 months. I had long discussion with the patient, family. If they do not see improvement next week or two, they may want to consider comfort care. 4. Altered mental status, I think it is multifactorial. Urinary tract infection may be adding to it, but I am concerned about underlying neurological issue or problem, could the patient be having a mini stroke. Will discuss with neuro. Would it benefit to do a magnetic resonance imaging. We will follow with you. Job#: [id number]
[2017-11-19] MEDS: LABETALOL HCL 5 MG/ML 20ML VIAL IV PRN (03:50)
[2017-11-19] MEDS: PANTOPRAZOL 40MG/SOD CHL 0.9% 50 ML IV SCH ×2 (05:25→08:45)
[2017-11-19] MEDS: MEROPENEM 500MG 250 MG in SODIUM CHLORIDE 0.9% 50ML 50 ML IV SCH ×4 (05:26→12:00)
[2017-11-19 06:30] LABS: BASOPHILS # (AUTO) 0.1 (0.0-0.1); BASOPHILS % 1.1 % (0.0-1.0); EOSINOPHILS # (AUTO) 0.4 (0.0-0.4); EOSINOPHILS % 4.5 % (0.0-6.0); HEMATOCRIT 31.8 % (34.2-44.1); HEMOGLOBIN 10.1 g/dL (12.0-16.0); LYMPHOCYTES % 23.3 % (18.0-39.1); MEAN CORPUSCULAR HEMOGLOBIN 28.5 pg (28-32); MEAN CORPUSCULAR HGB CONC 31.8 g/dL (31-35); MEAN CORPUSCULAR VOLUME 89.8 fL (81-99); MONOCYTES # (AUTO) 0.6 (0.2-0.8); MONOCYTES % 7.6 % (4.4-11.3); NEUTROPHILS # (AUTO) 5.2 (2.1-6.9); NEUTROPHILS % 61.4 % (38.7-80.0); PLATELET COUNT 298 x10e3/uL (140-360); RED BLOOD COUNT 3.54 x10e6/uL (3.6-5.1); RED CELL DISTRIBUTION WIDTH 15.9 % (11.7-14.4)
[2017-11-19 06:52] LABS: ALBUMIN 1.7 g/dL (3.5-5.0); ALBUMIN/GLOBULIN RATIO 0.6 (0.8-2.0); ANION GAP 9.3 mmol/L (8-16); CALCIUM 7.8 mg/dL (8.4-10.2); CREATININE, SERUM 0.98 mg/dL (0.57-1.11); POTASSIUM 3.3 mmol/L (3.5-5.1)
[2017-11-19] MEDS: INSULIN REGULAR, HUMAN 100 UNIT/1 ML 3ML VIAL SQ SCH ×2 (07:30→11:30)
[2017-11-19 08:00] VITALS: BP 181/89
[2017-11-19 08:32] LABS: EOSINOPHILS % (MANUAL) 1 % (0-7); LYMPHOCYTES % (MANUAL) 24 % (19-48); METAMYELOCYTES % (MANUAL) 2 % (0-0); MONOCYTES % (MANUAL) 5 % (3.4-9.0); NEUTROPHILS % (MANUAL) 68 % (40-74); PLATELET ESTIMATE ADEQUATE; PLATELET MORPHOLOGY COMMENT NORMAL; RBC MORPHOLOGY COMMENT NORMAL
[2017-11-19] MEDS ORDERED: POTASSIUM CHLORIDE 10 MEQ TABCR PO ONE (11:00)
[2017-11-19 11:50] VITALS: BP 160/63
== END 2017-11-19 12:27 | DRG 871 ==
LOC: ER 18:31 → ERHOLD 21:37 → ICU 22:08 → MED/SURG2 11-16 17:59
DX: A41.9 Sepsis, unspecified organism (principal); G93.40 Encephalopathy, unspecified; N17.9 Acute kidney failure, unspecified; N39.0 Urinary tract infection, site not specified; E11.22 Type 2 diabetes mellitus with diabetic chronic kidney disease; E86.0 Dehydration; I25.10 Atherosclerotic heart disease of native coronary artery without angina pectoris; I12.9 Hypertensive chronic kidney disease with stage 1 through stage 4 chronic kidney disease, or unspecified chronic kidney disease; N18.3 Chronic kidney disease, stage 3 (moderate); E03.9 Hypothyroidism, unspecified; B96.20 Unspecified Escherichia coli [E. coli] as the cause of diseases classified elsewhere; Z16.24 Resistance to multiple antibiotics; F06.8 Other specified mental disorders due to known physiological condition; E87.6 Hypokalemia; G89.29 Other chronic pain; R65.20 Severe sepsis without septic shock; Z79.4 Long term (current) use of insulin
CPT/HCPCS: 36415; 51700; 70450; 71045; 71046; 74018; 74176; 80048; 80053; 81001; 82550; 82553; 82948; 83605; 83690; 83735; 84436; 84443; 84479; 84484; 84550; 85025; 85610; 85730; 86850; 86900; 87040; 87086; 93005; 97139; 99285; J0692; J2185; J2270; J2405; J2543; J3480; J7030; J7070